=== PATIENT | female | born 1930 | race Caucasian/White ===

== ENCOUNTER 2017-11-08 06:03 | Inpatient (IN) ==
[2017-11-08 06:49] LABS: Appearance,Urine SL CLOUDY (Clear); Bilirubin,Urine Negative (Negative); Blood, Urine Negative (Negative); Color,Urine YELLOW (Yellow); Glucose,Urine (UA) Negative (Negative); Ketones,Urine Negative (Negative); Leukocyte Esterase,Urine Negative (Negative); Microscopic, Urine URINE MICROSCOPIC (MICROSCOPIC); Protein,Urine Negative (Negative); Urobilinogen,Urine 0.2 EU/dl (0.2)
[2017-11-08 06:57] LABS: Anion Gap 12.1 mEq/L (5-15); Potassium 4.1 mmoL/L (3.5-5.1)
[2017-11-08 07:00] LABS: Bacteria,Urine 3+ /lpf; INR 1.13 (0.9-1.1); Prothrombin Time 12.2 seconds (9.4-11.8); Yeast,Urine 1+ /lpf
[2017-11-08 07:05] LABS: Basophils # 0.1 K/mm3 (0-0.2); Basophils % 0.5 % (0.1-2.0); Eosinophils # 0.3 K/mm3 (0.0-0.4); Hematocrit 34.8 % (37.0-47.0); Lymphocytes # 1.4 K/mm3 (0.7-4.5); Lymphocytes % 14.4 K/mm3 (10-50); Mean Corpuscular HGB Conc 31.7 g/dL (31.8-35.4); Mean Corpuscular Hemoglobin 30.7 pg (27.0-31.2); Mean Corpuscular Volume 96.7 fl (81-99); Monocytes # 0.7 K/mm3 (0.1-1.0); Neutrophils # 7.5 K/mm3 (1.8-7.8); Neutrophils % 75.1 % (37.0-80.0); Platelet Count 291 K/mm3 (142-424); Red Blood Count 3.59 M/mm3 (4.20-5.40); Red Cell Distribution Width 13.9 % (11.5-17.5)
--- NOTE | 2017-11-08 10:57 | Progress Note ---
[facility] Anesthesia Checklist - Patient Identification Patient Identification: Arm Band - Structural Data Admitted From: Home Planned Operative Procedure/s: right guy Consent for Planned Operative Procedure(s) Verified: Yes Verified Documents: Surgical Consent, History and Physical - NPO Status Verified Time NPO: 00:00 - Additional verifications Anesthesia Reactions: No - Airway Assessment C-Spine Mobility Assessed: Yes (mp2) TMJ Mobility Assessed: Yes Dentition: Good Dentition - Neurological Assessment Level of Consciousness: Awake, Alert - Anesthesia Plan Anesthesia Risk discussed: Yes Anesthesia Plan: Verified ASA Class: III Anesthesia Type: General [facility] Anesthesia HX I have reviewed the patient's past medical history: Yes Medical History: Reports:: Anxiety, Atrial Fibrillation, Cancer (breast), Coronary Artery Disease, Internal Pacemaker, Valvular Heart Disease Denies:: Diabetes Mellitus Type 1, Diabetes Mellitus Type 2, MRSA, Seizures Other Medical History: Reports: Hypothyroidism Laterality Cases: Left: Mastectomy, Right: Total Hip Replacement Other Surgeries: Yes: Cholecystectomy, Colostomy, Pacemaker Amputation: No Fractures: Yes *Family Hx:: Heart Attack, Hyperlipidemia, Hypertension, Stroke
--- NOTE | 2017-11-08 10:59 | Progress Note ---
[facility] Anesthesia Record Part I Intake, IV Amount: 1,000 Estimated blood loss (mL): 200 Urine output (mL): 175 Blood Pressure: 134/69 SaO2: 96 Pulse Rate: 80 Respiratory Rate: 16 Temperature: 97.7 F Patient is:: Drowsy, Nasal O2, Stable Stable to PACU at:: 10:50
--- NOTE | 2017-11-08 10:59 | Progress Note ---
[facility] Anesthesia Record Part II Discharge Time: 11:20 Destination: 2nd floor PACU nurse assessment reviewed?: Yes Patient Condition:: Good Anesthesia Complications:: None
--- NOTE | 2017-11-08 13:25 | Consult Report ---
History of Present Illness Consult date: 11/08/17 Requesting physician: Nuno Lopez Consult reason: post-op evaluation Chief complaint: S/P Right hip replacement Additional Medical History:: 1. Coronary artery disease A. Cardiac cath, 2011, mild CAD B. Cardiac cath, 2014, 50-60% mid LAD lesion. Medical therapy. [facility]. 2. Mixed valvular heart disease including mild aortic stenosis with mild aortic insufficiency, moderate mitral regurgitation and moderate to severe tricuspid regurgitation with RVSP of 76 mmHg. 3. Permanent pacemaker in situ A. Chronic atrial fibrillation, on coagulation therapy with Coumadin 4. HLD, on statin therapy 5. HTN/HHD A. Echo, 11/2017, moderate LAE, normal LV size, LVEF 45% with distal septum and apical wall hypokinesis. Moderate GERARD and mild RVE. Thickened and calcified aortic valve with mild aortic stenosis, there is mild aortic insufficiency with mean gradient of 19 mm across the aortic valve. Moderate mitral and moderate to severe tricuspid regurgitation with RVSP of 76 mmHg. History of present illness: 87-year-old white female seen postop after right hip replacement. Patient has known mixed valvular heart disease and cardiology has been asked to follow. Patient is drowsy but arousable. She denies any chest pain at this time. She was recently seen in the office earlier this month and cleared for surgery. [facility] History Medical History: Reports:: Anxiety, Atrial Fibrillation, Cancer (breast), Coronary Artery Disease, Internal Pacemaker, Valvular Heart Disease Denies:: Diabetes Mellitus Type 1, Diabetes Mellitus Type 2, MRSA, Seizures Other Medical History: Reports: Hypothyroidism Laterality Cases: Left: Mastectomy, Right: Total Hip Replacement Other Surgeries: Yes: Cholecystectomy, Colostomy, Pacemaker Amputation: No Fractures: Yes - *Social History Educational Level: Completed High School Smoking Status: Never smoker Alcohol Intake: never Occupational Status: retired Housing: house Household Members: none - Psychiatric History Expresses thoughts of harming self/others: None Suicide Plan Description: No Plan Pschychiatric History:: Reports:: Anxiety *Family Hx:: Heart Attack, Hyperlipidemia, Hypertension, Stroke Meds Home Medications Medication Instructions Recorded Confirmed Type alprazolam 0.5 mg tablet 0.5 mg PO DAILY 07/14/17 11/08/17 History bisoprolol fumarate 5 mg tablet 2.5 mg PO BID 07/14/17 11/08/17 History celecoxib 200 mg capsule 200 mg PO QDAY 07/14/17 11/08/17 History cholecalciferol (vitamin D3) 1,000 1,000 unit PO DAILY 07/14/17 11/08/17 History unit capsule duloxetine 60 mg capsule,delayed 60 mg PO QDAY 07/14/17 11/08/17 History release furosemide 20 mg tablet 20 mg PO QODHS 07/14/17 11/08/17 History levothyroxine 50 mcg capsule 50 mcg PO DAILY 07/14/17 11/08/17 History midodrine 5 mg tablet 5 mg PO TID 07/14/17 11/08/17 History multivitamin-ferrous 1 tab PO QAM 07/14/17 11/08/17 History fumarate-folic acid 18 mg-400 mcg tablet oxycodone-acetaminophen 2.5 mg-325 1 tab PO Q6HP PRN 07/14/17 11/08/17 History mg tablet pantoprazole 40 mg tablet,delayed 40 mg PO QAM 07/14/17 11/08/17 History release potassium chloride ER 10 mEq 10 meq PO QODHS 07/14/17 11/08/17 History capsule,extended release warfarin 2 mg tablet 1 mg PO QDAY 07/14/17 11/08/17 History Digoxin 125 mcg PO DAILY 09/23/17 11/08/17 History diltiazem CD 180 mg 180 mg PO DAILY cap 11/02/17 11/08/17 History capsule,extended release 24 hr ranolazine ER 500 mg 500 mg PO DAILY tab 11/02/17 11/08/17 History tablet,extended release,12 hr levoFLOXacin [Levaquin 500mg 500 mg PO DAILY 11/08/17 11/08/17 History tab] Allergies Allergy/AdvReac Type Severity Reaction Status Date / Time amiodarone Allergy Mild "feel Verified 11/08/17 06:44 crazy" Review of Systems - *Cardiovascular Denies chest pain - *Respiratory Reports shortness of breath with activity - *Gastrointestinal Denies abdominal pain - *Musculoskeletal Reports joint pain Exam Vital signs and Labs for Last 24 Hours: Temp Pulse Resp BP Pulse Ox 98.0 F 70 20 115/53 94 L 11/08/17 12:08 11/08/17 12:08 11/08/17 12:08 11/08/17 12:08 11/08/17 12:08 Laboratory Results - last 24 hr 11/08/17 06:35: Urine Color Yellow, Urine Appearance Sl cloudy, Urine pH 6.0, Ur Specific [place] 1.020, Urine Protein Negative, Urine Glucose (UA) Negative, Urine Ketones Negative, Urine Blood Negative, Urine Nitrate Negative, Urine Bilirubin Negative, Urine Urobilinogen 0.2, Ur Leukocyte Esterase Negative, Urine WBC 10-20, Ur Squamous Epith Cells 10-20, Urine Bacteria 3+, Urine Yeast 1 + 11/08/17 06:35: WBC 10.0, RBC 3.59 L, Hgb 11.0 L, Hct 34.8 L, MCV 96.7, MCH 30.7 , MCHC 31.7 L, RDW 13.9, Plt Count 291, MPV 8.0, Neut % (Auto) 75.1, Lymph % ( Auto) 14.4, Giles % (Auto) 7.0, Eos % (Auto) 3.0, Baso % (Auto) 0.5, Neut # (Auto ) 7.5, Lymph # (Auto) 1.4, Giles # (Auto) 0.7, Eos # (Auto) 0.3, Baso # (Auto) 0.1 11/08/17 06:35: Sodium 138, Potassium 4.1, Chloride 101, Carbon Dioxide 29, Anion Gap 12.1, BUN 14, Creatinine 1.21 H, Estimated Creat Clear 24, Estimated GFR 42 L, Est GFR ( Amer) 51 L, Glucose 105 11/08/17 06:35: Blood Type A Positive, Antibody Screen Negative, Crossmatch (AHG ) See Detail 11/08/17 06:35: PT 12.2 H, INR 1.13 H I & O for Last 24 hours: Intake & Output 11/06/17 11/07/17 11/08/17 11/09/17 11:59 11:59 11:59 11:59 Intake Total 1000 / 1000 Balance 1000 / 1000 Weight 103 lb 104 lb 2 oz - Constitutional Comments: White female in bed in no acute distress. Patient is seen postoperatively and is still drowsy but arousable to verbal stimuli. - *Routine Neck Exam Present: carotid bruit - *Routine Respiratory Exam Present: CTA bilaterally - *Routine Cardiovascular Exam Present: RRR, murmur - *Routine Extremities Exam Absent: edema Assessment and Plan (1) Status post right hip replacement Current visit: Yes Status: Acute Category: Surgical Code(s): Z96.641 - Presence of right artificial hip joint (2) Aortic valve stenosis Current visit: Yes Status: Acute Category: Medical Code(s): I35.0 - Nonrheumatic aortic (valve) stenosis (3) CAD (coronary artery disease) Current visit: No Status: Chronic Qualifiers: Coronary Disease-Associated Artery/Lesion type: [place] artery [place] vs. transplanted heart: [place] heart Associated angina: without angina Qualified Code(s): I25.10 - Atherosclerotic heart disease of [place] coronary artery without angina pectoris Category: Medical Code(s): I25.10 - Atherosclerotic heart disease of [place] coronary artery without angina pectoris (4) Cardiac pacemaker in situ Current visit: No Status: Chronic Category: Medical Code(s): Z95.0 - Presence of cardiac pacemaker (5) Atrial fibrillation Current visit: No Status: Chronic Qualifiers: Atrial fibrillation type: permanent Qualified Code(s): I48.2 - Chronic atrial fibrillation Category: Medical Code(s): I48.91 - Unspecified atrial fibrillation (6) Cardiomyopathy Current visit: No Status: Chronic Category: Medical Code(s): I42.9 - Cardiomyopathy, unspecified (7) HLD (hyperlipidemia) Current visit: No Status: Chronic Qualifiers: Hyperlipidemia type: mixed hyperlipidemia Qualified Code(s): E78.2 - Mixed hyperlipidemia Category: Medical Code(s): E78.5 - Hyperlipidemia, unspecified (8) HTN (hypertension) Current visit: No Status: Chronic Qualifiers: Hypertension type: essential hypertension Qualified Code(s): I10 - Essential (primary) hypertension Category: Medical Code(s): I10 - Essential (primary) hypertension (9) Mitral valve regurgitation Current visit: No Status: Chronic Category: Medical Code(s): I34.0 - Nonrheumatic mitral (valve) insufficiency - Assessment and plan all Dx Assessment and Plan for all problems:: 1. Home medications of bisoprolol and Cardizem along with Lasix and Ranexa have been ordered. 2. Continue cautious IV fluid use 3. We will follow with you.
--- NOTE | 2017-11-08 13:40 | Pharmacy Consult Notes ---
[facility] Pharmacy VTE Monitoring - Patient Demographics Admission date: 11/08/17 Report Date: 11/08/17 Time: 13:40 Allergies/Adverse Reactions: Patient Allergies amiodarone Allergy (Mild, Verified 11/08/17 06:44) "feel crazy" Height: 1.55 m Weight: 47.23 kg Patient Problems: Current Active Problems (Last Reviewed 10/29/17 @ 12:56 by SHEA Bosch) Status post right hip replacement (Acute) Aortic valve stenosis (Acute) - VTE Risk Labs: VTE Related Lab Results Hgb 11.0 g/dL (12.2-16.2) L 11/08/17 06:35 Hct 34.8 % (37.0-47.0) L 11/08/17 06:35 Plt Count 291 K/mm3 (142-424) 11/08/17 06:35 PT 12.2 seconds (9.4-11.8) H 11/08/17 06:35 INR 1.13 (0.9-1.1) H 11/08/17 06:35 BUN 14 mg/dL (7-18) 11/08/17 06:35 Creatinine 1.21 mg/dL (0.55-1.02) H 11/08/17 06:35 Estimated Creat Clear 24 mL/min (0-300) 11/08/17 06:35 VTE Score: 4 VTE Risk Level: Low Risk - Prophylaxis VTE Prophylaxis Ordered?: Yes Types of VTE Prophylaxis: IPCS Knee High, Pharmacological Location of Applied Device: Bilateral Lower Extremeties Pharmacologic Type: Enoxaparin
--- NOTE | 2017-11-08 20:28 | Operative Note ---
Date of procedure: 11/08/17 Pre-op Diagnosis:: 1. Avascular necrosis, right femoral head 2. Status post cannulated hip screw fixation, right hip Post-op Diagnosis:: 1. Avascular necrosis, right femoral head 2. Status post cannulated hip screw fixation, right hip Procedure performed:: 1. Removal of hardware, right hip 2. Bipolar hemiarthroplasty, right hip Surgeon:: Nuno Lopez MD Metal Burnisher(s):: Dr. Crook NARCOTICS AGENT:: Toby Feedonna Anesthesia: GETA, regional Estimated blood loss (mL): 200 Clinical Note:: Patient is an 87-year-old female who sustained a valgus impacted intracapsular fracture neck of the RIGHT femur following a mechanical fall at home in May 2017. She was admitted to hospital and following appropriate evaluation she underwent a cannulated screw fixation right hip fracture by Dr. Crook. She subsequently developed avascular necrosis the femoral head with worsening hip pain. Evaluation including aspiration of the hip joint under fluoroscopy did not reveal any evidence of infection. Patient was due to have surgery last week but it was delayed due to urinary tract infection. Now she is on treatment for UTI and is brought in for removal of the cannulated screws followed by a total hip arthroplasty/bipolar hemiarthroplasty as appropriate at the time of surgery. The surgery is indicated to relieve pain and restore function. The surgery is clinically indicated and is the standard of care for this type of problem. I have previously seen her along with her family in the preoperative area last week when she was brought in for surgery that was eventually canceled because of UTI. At that time Dr. Crook has requested me to take over her further management and the family were happy with that. Operative findings:: There is significant collapse and destruction of the femoral head noted as noted on the preoperative imaging. No evidence of screw penetration noted into the acetabulum. There were loose bone/chondral fragments in the hip joint. Also there is granulation tissue in the fovea. The articular cartilage of the acetabulum is well-preserved without any significant degenerative changes. Marked synovitis was noted. Also there was synovitis at the screw insertion site. No evidence of shalini infection or pus was noted. Intraoperative tissue samples and culture swabs were taken for Gram stain and culture and sensitivity. We also sent the femoral head for histopathology. The proximal femur bone quality is reasonably good. Operative note:: On the day of the procedure the patient and family were met in the preoperative area, and a physical examination was performed. The operating side and site were marked and initialed by me. I reviewed the diagnosis, natural history and management options in detail including both the nonsurgical and surgical. Given the nature of the right hip condition, I have recommended surgery in the form of either a total hip arthroplasty or a bipolar hemiarthroplasty depending on the condition of the acetabular articular surface at the time of surgery. I discussed the procedure, risks and benefits, alternatives, potential complications and expected outcomes with the patient and family. The complications discussed include but are not limited to infection, injury to nerves and blood vessels, DVT and PE, femur fracture, limb length inequality, dislocation, implant failure, loosening, acetabular wear, osteolysis, periprosthetic femur fracture, heterotopic ossification, abductor weakness and a limp, incomplete relief of pain, incomplete return of function or motion, likely need for further surgery in future including revision, anesthetic/ medical complications including heart attack, stroke, transfusion reactions and even . We discussed how any of these events can be devastating. We have discussed nonsurgical alternatives as well. We also discussed the postoperative course including the rehab and physical therapy required. The consent form was reviewed and signed. The patient was brought to the operating room and a general anesthesia was administered by the athletic gear custodian. The patient was then transferred onto the operating table and positioned in the LEFT lateral decubitus position with the RIGHT hip facing upwards. All the bony prominences were well-padded. The RIGHT lower extremity was then prepped and draped in the usual sterile fashion. The entire operative team used isolation suits and room traffic was controlled. The surgical landmarks and incision was marked over the skin with a marking pen. Ioban sterile drape was used to cover the operative site and isolate the perineum completely from the operative field. Administration of 2 g of prophylactic IV Ancef was confirmed with the anesthetic team. A preprocedure timeout was performed as per hospital protocol. A posterior approach was used to the hip joint. An electrocautery was used for hemostasis. The skin incision was made centering over the posterior border of the greater trochanter extending posteriorly in a curvilinear fashion across the buttock. The previous surgical scar for insertion of the cannulated screws was noted to be too far anterior to be incorporated this incision. In any case that incision was very small and the risk of any vascular problems for the intervening skin is very minimal. The dissection was carried through subcutaneous tissue down to the fascia kamilla. The fascia kamilla and gluteus fascia were split and a Charnley retractor was placed. The trochanteric bursa was then removed with blunt dissection. The sciatic nerve was identified and kept out of the harm's way throughout the rest of the procedure. We then turned our attention to the removal of the cannulated screws. The screw heads were palpable over the lateral aspect of the proximal bladder. We split the vastus lateralis muscle over the screw heads and easily remove the screws with appropriate sober. We noticed a lot of synovitis over the screw heads but no evidence of any shalini infection noted. We took culture swabs and tissue samples from this area for microbiology. Following removal of the screws the area was thoroughly irrigated with pulse lavage. We then turned our attention to performing the arthroplasty. The hip joint was internally rotated and the fat over the external rotators was cleared with a sponge. The short external rotator muscles were identified, a couple of tag stitches were placed near their insertion, and they were divided close to the greater trochanter with electrocautery. This exposed the joint capsule which was opened with a T shaped incision and tag stitches were applied to both the leaves of the capsule. Upon opening the joint capsule, we noted the capsule to be very thickened and synovitic. The hip joint was then dislocated. The femoral cutting guide was used to demarcate the appropriate level of the neck cut and the neck was osteotomized with an oscillating saw. The femoral head was removed, noted to be very deformed with collapse of the articular surface. The head was sent for histopathology examination. Also there were multiple loose chondral/bone bone fragments in the acetabulum. No evidence of any shalini infection was noted. The debris was removed from the acetabulum and it was irrigated thoroughly with pulse lavage. A thorough examination of the stent was carried out at this stage and was noted the cartilage to be well preserved without any significant degenerative changes. There was some granulation tissue in the fovea which we removed with the electrocautery. No evidence of any screw penetration was noted into the acetabulum. Therefore, we decided to proceed with a bipolar hemiarthroplasty and not performed a full total hip arthroplasty. We then sized the acetabulum and it measured 50 mm. Our attention was then turned to the preparation of proximal femur where a cutting guide was used to francia the neck for the femoral neck cut. An oscillating saw was then used to finish the femoral cut. A box osteotome was then used to remove the bone from the proximal femur. A canal entry reamer was then used to open the femoral canal paying close attention to keep the reamer in a lateral position. Next we performed femoral broaching starting with a small broach, making efforts to lateralize the broach. The broaching was continued sequentially up to size 4 broach. We found this to be a very good fit without any rocking. We then used the calcar reamer to finish the femoral preparation. We then performed a trial reduction using the size 4 broach , +0 neck and 50 mm bipolar head. We noticed this to be somewhat loose the leg was noted to be short compared to the opposite side. Therefore we changed today place for neck and re-trialed. The hip was taken through range of motion and tested in adduction, internal and external rotation as well as with a shuck and posteriorly directed force on a flexed hip. It was noted that the hip was very stable with these trial components throughout the range of motion. We also noted that the limb lengths were equal with these components. Next, the trial components were removed and the femur and acetabulum were irrigated with pulse lavage and suctioned out. The size 4 Stuart accolade 132 degree femoral stem was introduced and seated to the appropriate level. This gave us a very good fit without any play whatsoever. We then irrigated and dried the Prater taper and then placed the definitive 50 mm bipolar femoral head assembly on the stem and tapped into place. The hip was then reduced and again taken through range of motion and noted to be stable. The limb length was also well corrected. The hip joint was then soaked with dilute Betadine solution for 3 minutes, then suctioned out and irrigated with normal saline pulse lavage. At this point I also injected the capsule and soft tissue with the local anesthetic cocktail ( 0.5 percent bupivacaine 200 mg +10 mg of morphine +600 g of epinephrine +750 mg of cefuroxime diluted in normal saline to make up a total volume of 120 mL). We confirmed good hemostasis and then proceeded to close the wound. The capsule was closed with interrupted #1 Vicryl sutures followed by reattachment of the external rotators to the greater trochanter with #1 Vicryl sutures. Next the fascia kamilla and the gluteus fascia were closed with #1 Vicryl sutures. The wound was again irrigated copiously with pulse lavage and suctioned dry. Next the subcutaneous tissue was closed with interrupted #2-0 Vicryl sutures. The skin was closed with 4-0 Monocryl subcuticular sutures, Dermabond and Steri- Strips. Sterile dressings were applied with Silverlon dressing. No drains were placed. The patient was then transferred from the operating table onto the bed. The leg lengths were again checked in supine position and noted to be equal. An abduction pillow was placed between the legs. The patient was then reversed from the anesthetic and transported to the postoperative recovery area in a stable condition. She tolerated the procedure well and there were no immediate complications. Swab, needle and instrument counts were correct according to the scrub team at the end of the procedure. Portable X-rays of the RIGHT hip AP and lateral views were obtained in the recovery area and noted to be satisfactory. Postoperatively, continue standard precautions for a posterior hip approach. To mobilize weightbearing as tolerated with the help of a walker by physical therapist and to commence standard physical therapy and precautions for a posterior hip approach. Implants: Stuart Accolade 132 degree neck angle V 40, hip stem- size 4 Stuart UHR universal head bipolar component- 50 mm outer diameter/28 mm inner diameter Stuart LFIT V40 femoral head, 28 mm outer diameter, +4 mm offset (Industry pharmaceutical sales representative: Antwon Clark from [employer]) Condition: stable Disposition: floor Specimens:: 1. Tissue samples and culture swabs from right hip for microbiology 2. Femoral head for histopathological examination Complications:: None
--- NOTE | 2017-11-08 20:30 | Progress Note ---
Internal Medicine - PN: Subj *Date: 11/08/17 *Time: 20:28 Interval history: Consulted for medical management after hip replacement today. Patient is currently resting comfortably. She is drinking liquids and preparing to eat some Jello. Exam Vital signs and Labs for Last 24 Hours: Temp Pulse Resp BP Pulse Ox 97.2 F L 76 18 112/58 93 L 11/08/17 19:45 11/08/17 19:45 11/08/17 19:45 11/08/17 19:45 11/08/17 19:45 Laboratory Results - last 24 hr 11/08/17 06:35: Urine Color Yellow, Urine Appearance Sl cloudy, Urine pH 6.0, Ur Specific [place] 1.020, Urine Protein Negative, Urine Glucose (UA) Negative, Urine Ketones Negative, Urine Blood Negative, Urine Nitrate Negative, Urine Bilirubin Negative, Urine Urobilinogen 0.2, Ur Leukocyte Esterase Negative, Urine WBC 10-20, Ur Squamous Epith Cells 10-20, Urine Bacteria 3+, Urine Yeast 1 + 11/08/17 06:35: WBC 10.0, RBC 3.59 L, Hgb 11.0 L, Hct 34.8 L, MCV 96.7, MCH 30.7 , MCHC 31.7 L, RDW 13.9, Plt Count 291, MPV 8.0, Neut % (Auto) 75.1, Lymph % ( Auto) 14.4, [place] % (Auto) 7.0, Eos % (Auto) 3.0, Baso % (Auto) 0.5, Neut # (Auto ) 7.5, Lymph # (Auto) 1.4, [place] # (Auto) 0.7, Eos # (Auto) 0.3, Baso # (Auto) 0.1 11/08/17 06:35: Sodium 138, Potassium 4.1, Chloride 101, Carbon Dioxide 29, Anion Gap 12.1, BUN 14, Creatinine 1.21 H, Estimated Creat Clear 24, Estimated GFR 42 L, Est GFR ( Amer) 51 L, Glucose 105 11/08/17 06:35: Blood Type A Positive, Antibody Screen Negative, Crossmatch (AHG ) See Detail 11/08/17 06:35: PT 12.2 H, INR 1.13 H 11/08/17 08:05: Urine Color Yellow, Urine Appearance Clear, Urine pH 5.5, Ur Specific [place] 1.025, Urine Protein Negative, Urine Glucose (UA) Negative, Urine Ketones Negative, Urine Blood Negative, Urine Nitrate Negative, Urine Bilirubin Negative, Urine Urobilinogen 0.2, Ur Leukocyte Esterase Negative Vital Signs Temp Pulse Pulse Resp BP BP Pulse Ox 11/08/17 19:45 97.2 F L 76 18 112/58 93 L 11/08/17 18:31 97.2 F L 74 16 97/47 93 L 11/08/17 17:30 97.7 F 72 18 102/54 92 L 11/08/17 16:30 97.3 F L 70 18 99/45 11/08/17 15:30 97.2 F L 75 16 94/45 95 11/08/17 14:30 97.6 F 63 16 94/47 93 L 11/08/17 14:00 97.2 F L 69 16 102/46 95 11/08/17 13:30 97.4 F L 71 16 100/47 93 L 11/08/17 13:00 97.6 F 69 16 104/46 94 L 11/08/17 12:30 97.2 F L 73 16 114/53 94 L 11/08/17 12:15 97.0 F L 71 16 118/54 96 11/08/17 12:08 98.0 F 70 20 115/53 94 L 11/08/17 12:00 97.3 F L 70 16 115/53 96 11/08/17 11:45 97.1 F L 72 16 114/61 94 L 11/08/17 11:40 99.3 F 66 24 122/64 98 11/08/17 11:30 99.3 F 71 20 126/63 97 11/08/17 11:20 97.7 F 71 19 131/58 96 11/08/17 11:10 97.7 F 70 19 127/62 97 11/08/17 11:00 97.7 F 83 16 125/50 96 11/08/17 10:59 97.7 F 80 16 134/69 11/08/17 10:50 97.7 F 80 16 134/69 97 11/08/17 06:56 97.4 F L 70 20 154/77 96 Intake and Output 11/08/17 11/08/17 11/09/17 11:59 19:59 03:59 Intake Total 1000 / 1000 200 / 200 Output Total 175 / 175 100 / 100 Balance 825 / 825 100 / 100 Intake: Intake, Oral Amount 200 / 200 Intake, Total IV Amount 1000 / 1000 Output: Output, Urine Amount 100 / 100 Output, Urine Amount (Catheter) 175 / 175 Bryant 175 / 175 Other: Weight 104 lb 2 oz Patient Weight 11/09/17 11:59 Weight 104 lb 2 oz I & O for Last 24 hours: Intake & Output 11/06/17 11/07/17 11/08/17 11/09/17 11:59 11:59 11:59 11:59 Intake Total 1000 / 1000 200 / 200 Output Total 175 / 175 100 / 100 Balance 825 / 825 100 / 100 Weight 103 lb 104 lb 2 oz - Constitutional no acute distress - *Routine HEENT Exam ENT: Present: mucous membranes moist Assessment and Plan (1) Status post right hip replacement Current visit: Yes Status: Acute Category: Surgical Code(s): Z96.641 - Presence of right artificial hip joint (2) Aortic valve stenosis Current visit: Yes Status: Acute Category: Medical Code(s): I35.0 - Nonrheumatic aortic (valve) stenosis (3) CAD (coronary artery disease) Current visit: No Status: Chronic Qualifiers: Coronary Disease-Associated Artery/Lesion type: [place] artery [place] vs. transplanted heart: [place] heart Associated angina: without angina Qualified Code(s): I25.10 - Atherosclerotic heart disease of [place] coronary artery without angina pectoris Category: Medical Code(s): I25.10 - Atherosclerotic heart disease of [place] coronary artery without angina pectoris (4) Cardiac pacemaker in situ Current visit: No Status: Chronic Category: Medical Code(s): Z95.0 - Presence of cardiac pacemaker (5) Atrial fibrillation Current visit: No Status: Chronic Qualifiers: Atrial fibrillation type: permanent Qualified Code(s): I48.2 - Chronic atrial fibrillation Category: Medical Code(s): I48.91 - Unspecified atrial fibrillation (6) Cardiomyopathy Current visit: No Status: Chronic Category: Medical Code(s): I42.9 - Cardiomyopathy, unspecified (7) HLD (hyperlipidemia) Current visit: No Status: Chronic Qualifiers: Hyperlipidemia type: mixed hyperlipidemia Qualified Code(s): E78.2 - Mixed hyperlipidemia Category: Medical Code(s): E78.5 - Hyperlipidemia, unspecified (8) HTN (hypertension) Current visit: No Status: Chronic Qualifiers: Hypertension type: essential hypertension Qualified Code(s): I10 - Essential (primary) hypertension Category: Medical Code(s): I10 - Essential (primary) hypertension (9) Mitral valve regurgitation Current visit: No Status: Chronic Category: Medical Code(s): I34.0 - Nonrheumatic mitral (valve) insufficiency - Assessment and plan all Dx Assessment and Plan for all problems:: Cardiology note reviewed, continue current care.
[2017-11-09 06:56] LABS: Basophils % 0.2 % (0.1-2.0); Eosinophils % 0.2 % (0.1-12.0); Lymphocytes # 0.9 K/mm3 (0.7-4.5); Lymphocytes % 4.3 K/mm3 (10-50); Mean Corpuscular HGB Conc 31.8 g/dL (31.8-35.4); Mean Corpuscular Volume 97.6 fl (81-99); Mean Platelet Volume 8.6 fl (7.4-10.4); Monocytes # 1.4 K/mm3 (0.1-1.0); Monocytes % 6.5 % (1.7-9.3); Neutrophils # 18.7 K/mm3 (1.8-7.8); Neutrophils % 88.9 % (37.0-80.0); Platelet Count 281 K/mm3 (142-424); Red Blood Count 2.71 M/mm3 (4.20-5.40); Red Cell Distribution Width 13.8 % (11.5-17.5)
[2017-11-09 07:01] LABS: Anion Gap 11.3 mEq/L (5-15); Potassium 4.3 mmoL/L (3.5-5.1)
[2017-11-09 07:14] LABS: Hematocrit 26.5 % (37.0-47.0); Hemoglobin 8.4 g/dL (12.2-16.2); White Blood Count 20.6 K/mm3 (4.8-10.8)
[2017-11-09 08:08] LABS: Lymphocytes % 8 % (10-50); Neutrophils % 92 % (42-76); Total Cells Counted 100
[2017-11-09 08:09] LABS: Hypochromasia 1+; Stomatocytes 2+
--- NOTE | 2017-11-09 09:10 | Progress Note ---
Internal Medicine - PN: Subj *Date: 11/09/17 *Time: 09:07 Interval history: Patient had some pain last night, has been up this morning already with assistance and is sitting in a chair. Exam Vital signs and Labs for Last 24 Hours: Temp Pulse Resp BP Pulse Ox 97.4 F L 99 H 18 103/49 93 L 11/09/17 07:33 11/09/17 08:55 11/09/17 07:33 11/09/17 07:33 11/09/17 08:40 Laboratory Results - last 24 hr 11/08/17 08:05: Urine Color Yellow, Urine Appearance Clear, Urine pH 5.5, Ur Specific [place] 1.025, Urine Protein Negative, Urine Glucose (UA) Negative, Urine Ketones Negative, Urine Blood Negative, Urine Nitrate Negative, Urine Bilirubin Negative, Urine Urobilinogen 0.2, Ur Leukocyte Esterase Negative, Urine RBC None, Urine WBC 3-5, Ur Squamous Epith Cells 5-10, Urine Bacteria Trace, Urine Yeast 4+ 11/09/17 06:35: WBC 20.6 H* D, RBC 2.71 L, Hgb 8.4 L D, Hct 26.5 L, MCV 97.6, MCH 31.0, MCHC 31.8, RDW 13.8, Plt Count 281, MPV 8.6, Neut % (Auto) 88.9 H, Lymph % (Auto) 4.3 L, [place] % (Auto) 6.5, Eos % (Auto) 0.2, Baso % (Auto) 0.2, Neut # (Auto) 18.7 H, Lymph # (Auto) 0.9, [place] # (Auto) 1.4 H, Eos # (Auto) 0.0 , Baso # (Auto) 0.0, Total Counted 100, Neutrophils % (Manual) 92 H, Lymphocytes % (Manual) 8 L, Platelet Estimate Normal, Hypochromasia 1+, Poikilocytosis 2+, Stomatocytes 2+ 11/09/17 06:35: Sodium 136, Potassium 4.3, Chloride 102, Carbon Dioxide 27, Anion Gap 11.3, BUN 15, Creatinine 1.17 H, Estimated Creat Clear 25, Estimated GFR 44 L, Est GFR ( Amer) 53 L, Glucose 122 H Vital Signs Temp Pulse Pulse Resp BP BP Pulse Ox 11/09/17 08:55 99 H 11/09/17 08:40 93 L 11/09/17 07:33 97.4 F L 99 H 18 103/49 95 11/09/17 04:00 100.4 F H 109 H 20 111/53 94 L 11/08/17 20:00 93 L 11/08/17 19:45 97.2 F L 76 18 112/58 93 L 11/08/17 18:31 97.2 F L 74 16 97/47 93 L 11/08/17 17:30 97.7 F 72 18 102/54 92 L 11/08/17 16:30 97.3 F L 70 18 99/45 11/08/17 15:30 97.2 F L 75 16 94/45 95 11/08/17 14:30 97.6 F 63 16 94/47 93 L 11/08/17 14:00 97.2 F L 69 16 102/46 95 11/08/17 13:30 97.4 F L 71 16 100/47 93 L 11/08/17 13:00 97.6 F 69 16 104/46 94 L 11/08/17 12:30 97.2 F L 73 16 114/53 94 L 11/08/17 12:15 97.0 F L 71 16 118/54 96 11/08/17 12:08 98.0 F 70 20 115/53 94 L 11/08/17 12:00 97.3 F L 70 16 115/53 96 11/08/17 11:45 97.1 F L 72 16 114/61 94 L 11/08/17 11:40 99.3 F 66 24 122/64 98 11/08/17 11:30 99.3 F 71 20 126/63 97 11/08/17 11:20 97.7 F 71 19 131/58 96 11/08/17 11:10 97.7 F 70 19 127/62 97 11/08/17 11:00 97.7 F 83 16 125/50 96 11/08/17 10:59 97.7 F 80 16 134/69 11/08/17 10:50 97.7 F 80 16 134/69 97 Intake and Output 11/08/17 11/09/17 11/09/17 19:59 03:59 11:59 Intake Total 200 / 200 120 / 120 240 / 240 Output Total 100 / 100 100 / 100 Balance 100 / 100 20 / 20 240 / 240 Intake: Intake, Oral Amount 200 / 200 120 / 120 240 / 240 Output: Output, Urine Amount 100 / 100 Output, Urine Amount (Catheter) 100 / 100 Bryant 100 / 100 Other: Weight 104 lb 2 oz Patient Weight 11/09/17 11:59 Weight 104 lb 2 oz I & O for Last 24 hours: Intake & Output 11/06/17 11/07/17 11/08/17 11/09/17 11:59 11:59 11:59 11:59 Intake Total 1000 / 1000 560 / 560 Output Total 175 / 175 200 / 200 Balance 825 / 825 360 / 360 Weight 103 lb 104 lb 2 oz Microbiology Reports for the Last 24 Hours: Microbiology 11/08/17 06:35 Urine,Clean Catch Urine Culture - Final Multiple organisms, suggests contamination. - Constitutional no acute distress - *Routine HEENT Exam ENT: Present: mucous membranes moist - *Routine Respiratory Exam Present: CTA bilaterally - *Routine Cardiovascular Exam Present: RRR - *Routine Extremities Exam Absent: cyanosis, clubbing, edema Assessment and Plan (1) Status post right hip replacement Current visit: Yes Status: Acute Category: Surgical Code(s): Z96.641 - Presence of right artificial hip joint (2) Aortic valve stenosis Current visit: Yes Status: Acute Category: Medical Code(s): I35.0 - Nonrheumatic aortic (valve) stenosis (3) CAD (coronary artery disease) Current visit: No Status: Chronic Qualifiers: Coronary Disease-Associated Artery/Lesion type: [place] artery [place] vs. transplanted heart: [place] heart Associated angina: without angina Qualified Code(s): I25.10 - Atherosclerotic heart disease of [place] coronary artery without angina pectoris Category: Medical Code(s): I25.10 - Atherosclerotic heart disease of [place] coronary artery without angina pectoris (4) Cardiac pacemaker in situ Current visit: No Status: Chronic Category: Medical Code(s): Z95.0 - Presence of cardiac pacemaker (5) Atrial fibrillation Current visit: No Status: Chronic Qualifiers: Atrial fibrillation type: permanent Qualified Code(s): I48.2 - Chronic atrial fibrillation Category: Medical Code(s): I48.91 - Unspecified atrial fibrillation (6) Cardiomyopathy Current visit: No Status: Chronic Category: Medical Code(s): I42.9 - Cardiomyopathy, unspecified (7) HLD (hyperlipidemia) Current visit: No Status: Chronic Qualifiers: Hyperlipidemia type: mixed hyperlipidemia Qualified Code(s): E78.2 - Mixed hyperlipidemia Category: Medical Code(s): E78.5 - Hyperlipidemia, unspecified (8) HTN (hypertension) Current visit: No Status: Chronic Qualifiers: Hypertension type: essential hypertension Qualified Code(s): I10 - Essential (primary) hypertension Category: Medical Code(s): I10 - Essential (primary) hypertension (9) Mitral valve regurgitation Current visit: No Status: Chronic Category: Medical Code(s): I34.0 - Nonrheumatic mitral (valve) insufficiency (10) Leukocytosis Current visit: Yes Status: Acute Category: Medical Code(s): D72.829 - Elevated white blood cell count, unspecified (11) Anemia Current visit: No Status: Acute Category: Medical Code(s): D64.9 - Anemia , unspecified - Assessment and plan all Dx Assessment and Plan for all problems:: Plan to give 1 unit of PRBC today and recheck labs tomorrow.
--- NOTE | 2017-11-09 09:58 | Progress Note ---
Subjective Date: 11/09/17 Time: 09:56 Principal diagnosis: post op hip replacement, day 1 Interval history: 87-year-old white female in bedside chair in no acute distress. Some shivering noted improved with blankets. Denies chest pain or shortness of breath. Exam Vital signs and Labs for Last 24 Hours: Temp Pulse Resp BP Pulse Ox 97.4 F L 99 H 18 103/49 93 L 11/09/17 07:33 11/09/17 08:55 11/09/17 07:33 11/09/17 07:33 11/09/17 08:40 Laboratory Results - last 24 hr 11/08/17 06:35: Crossmatch (AHG) See Detail 11/08/17 08:05: Urine Color Yellow, Urine Appearance Clear, Urine pH 5.5, Ur Specific [place] 1.025, Urine Protein Negative, Urine Glucose (UA) Negative, Urine Ketones Negative, Urine Blood Negative, Urine Nitrate Negative, Urine Bilirubin Negative, Urine Urobilinogen 0.2, Ur Leukocyte Esterase Negative, Urine RBC None, Urine WBC 3-5, Ur Squamous Epith Cells 5-10, Urine Bacteria Trace, Urine Yeast 4+ 11/09/17 06:35: WBC 20.6 H* D, RBC 2.71 L, Hgb 8.4 L D, Hct 26.5 L, MCV 97.6, MCH 31.0, MCHC 31.8, RDW 13.8, Plt Count 281, MPV 8.6, Neut % (Auto) 88.9 H, Lymph % (Auto) 4.3 L, [place] % (Auto) 6.5, Eos % (Auto) 0.2, Baso % (Auto) 0.2, Neut # (Auto) 18.7 H, Lymph # (Auto) 0.9, [place] # (Auto) 1.4 H, Eos # (Auto) 0.0 , Baso # (Auto) 0.0, Total Counted 100, Neutrophils % (Manual) 92 H, Lymphocytes % (Manual) 8 L, Platelet Estimate Normal, Hypochromasia 1+, Poikilocytosis 2+, Stomatocytes 2+ 11/09/17 06:35: Sodium 136, Potassium 4.3, Chloride 102, Carbon Dioxide 27, Anion Gap 11.3, BUN 15, Creatinine 1.17 H, Estimated Creat Clear 25, Estimated GFR 44 L, Est GFR ( Amer) 53 L, Glucose 122 H I & O for Last 24 hours: Intake & Output 11/06/17 11/07/17 11/08/17 11/09/17 11:59 11:59 11:59 11:59 Intake Total 1000 / 1000 560 / 560 Output Total 175 / 175 200 / 200 Balance 825 / 825 360 / 360 Weight 103 lb 104 lb 2 oz Microbiology Reports for the Last 24 Hours: Microbiology 11/08/17 06:35 Urine,Clean Catch Urine Culture - Final Multiple organisms, suggests contamination. - *Routine Respiratory Exam Present: CTA bilaterally - *Routine Cardiovascular Exam Present: RRR, murmur Progress Note: A&P (1) Status post right hip replacement Status: Acute Current Visit: Yes (2) Aortic valve stenosis Status: Acute Current Visit: Yes (3) CAD (coronary artery disease) Status: Chronic Current Visit: No (4) Cardiac pacemaker in situ Status: Chronic Current Visit: No (5) Atrial fibrillation Status: Chronic Current Visit: No (6) Cardiomyopathy Status: Chronic Current Visit: No (7) HLD (hyperlipidemia) Status: Chronic Current Visit: No (8) HTN (hypertension) Status: Chronic Current Visit: No (9) Mitral valve regurgitation Status: Chronic Current Visit: No (10) Leukocytosis Status: Acute Current Visit: Yes (11) Anemia Status: Acute Current Visit: No Assessment and Plan for All Diagnoses:: Cardiac status stable at this time. Continue current medical therapy. Patient did receive a unit of blood today. Would recommend IV Lasix 1 afterward to help prevent fluid overload.
--- NOTE | 2017-11-09 16:08 | Progress Note ---
Subjective Date: 11/09/17 Time: 15:45 Principal diagnosis: post op bipolar hemiarthroplasty, right hip, day 1 Interval history: Patient is status post removal of cannulated screws and uncemented bipolar hemiarthroplasty right hip post op day #1. Patient is lying down in bed. Says she is doing well and reports no problems. Patient has some pain in her right thigh/knee and says it's well-controlled with medication. No history of any nausea or vomiting. No history of any cough, chest pain, shortness of breath or palpitations. Patient says she is eating and drinking well. No history of any distal tingling or numbness. PN: Obj Ex Vital signs: Temp Pulse Resp BP Pulse Ox 98.0 F 70 18 90/37 97 11/09/17 15:33 11/09/17 15:33 11/09/17 15:33 11/09/17 15:33 11/09/17 15:33 Narrative: Laboratory Results - last 24 hr 11/08/17 06:35: Blood Type A Positive, Antibody Screen Negative, Crossmatch (AHG ) See Detail 11/08/17 08:05: Urine Color Yellow, Urine Appearance Clear, Urine pH 5.5, Ur Specific [place] 1.025, Urine Protein Negative, Urine Glucose (UA) Negative, Urine Ketones Negative, Urine Blood Negative, Urine Nitrate Negative, Urine Bilirubin Negative, Urine Urobilinogen 0.2, Ur Leukocyte Esterase Negative, Urine RBC None, Urine WBC 3-5, Ur Squamous Epith Cells 5-10, Urine Bacteria Trace, Urine Yeast 4+ 11/09/17 06:35: WBC 20.6 H* D, RBC 2.71 L, Hgb 8.4 L D, Hct 26.5 L, MCV 97.6, MCH 31.0, MCHC 31.8, RDW 13.8, Plt Count 281, MPV 8.6, Neut % (Auto) 88.9 H, Lymph % (Auto) 4.3 L, [place] % (Auto) 6.5, Eos % (Auto) 0.2, Baso % (Auto) 0.2, Neut # (Auto) 18.7 H, Lymph # (Auto) 0.9, [place] # (Auto) 1.4 H, Eos # (Auto) 0.0 , Baso # (Auto) 0.0, Total Counted 100, Neutrophils % (Manual) 92 H, Lymphocytes % (Manual) 8 L, Platelet Estimate Normal, Hypochromasia 1+, Poikilocytosis 2+, Stomatocytes 2+ 11/09/17 06:35: Sodium 136, Potassium 4.3, Chloride 102, Carbon Dioxide 27, Anion Gap 11.3, BUN 15, Creatinine 1.17 H, Estimated Creat Clear 25, Estimated GFR 44 L, Est GFR ( Amer) 53 L, Glucose 122 H Intake & Output 11/07/17 11/08/17 11/09/17 11/10/17 11:59 11:59 11:59 11:59 Intake Total 1000 / 1000 560 / 560 360 / 360 Output Total 175 / 175 200 / 200 250 / 250 Balance 825 / 825 360 / 360 110 / 110 Weight 104 lb 2 oz Exam General appearance: alert, active, awake, no acute distress ENT: Moist mucous membranes Cardiovascular: regular rate & rhythm, normal peripheral pulses, Respiratory: clear to auscultation, normal breath sounds ABD: normal exam; soft and non tender Genitourinary: Catheter in situ. 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 Thigh and calf are soft and nontender. On examination of the right hip the dressings are clean, dry and intact. No evidence of any infection or other complications noted. Distal pulses are 1+. Distal sensation is intact to light touch throughout. No motor deficits noted distally. - Urinary Catheter Management Bryant Cath placed during this visit: yes Urethral indwelling: Yes Reason for continuing: Surgical procedure Insertion date: 11/08/17 Insertion time: 08:05 Progress Note: A&P (1) Status post right hip replacement Status: Acute Current Visit: Yes (2) Aortic valve stenosis Status: Acute Current Visit: Yes (3) CAD (coronary artery disease) Status: Chronic Current Visit: No (4) Cardiac pacemaker in situ Status: Chronic Current Visit: No (5) Atrial fibrillation Status: Chronic Current Visit: No (6) Cardiomyopathy Status: Chronic Current Visit: No (7) HLD (hyperlipidemia) Status: Chronic Current Visit: No (8) HTN (hypertension) Status: Chronic Current Visit: No (9) Mitral valve regurgitation Status: Chronic Current Visit: No (10) Leukocytosis Status: Acute Current Visit: Yes (11) Anemia Status: Acute Current Visit: No Assessment and Plan for All Diagnoses:: Post op patient plan I reviewed the clinical and operative findings and procedure performed with the patient and family. I have told him that we have performed a bipolar hemiarthroplasty as the acetabular surface was well-preserved and we felt total hip arthroplasty is not needed. Her white cell count has gone up after surgery but there is no evidence of any infection. The intraoperative microbiology samples showed no bacteria on Gram stain. She also received 1 unit of PRBC today. We would observe repeat labs tomorrow. Patient is doing well and reports no problems. Patient started physical therapy/mobilization with PT weightbearing as tolerated on the right side with the walker and to continue the same. Continue DVT prophylaxis. Continue abduction pillow when in bed and continue standard precautions for the posterior approach hip replacement. Case management consult regarding discharge planning. Medical management as per Dr. Stark. Patient was also seen by cardiology as recommended by the plating department helper after surgery.
[2017-11-10 07:18] LABS: Basophils % 0.2 % (0.1-2.0); Eosinophils # 0.1 K/mm3 (0.0-0.4); Eosinophils % 0.3 % (0.1-12.0); Hematocrit 30.5 % (37.0-47.0); Hemoglobin 9.5 g/dL (12.2-16.2); Lymphocytes # 1.5 K/mm3 (0.7-4.5); Lymphocytes % 7.5 K/mm3 (10-50); Mean Corpuscular HGB Conc 31.1 g/dL (31.8-35.4); Mean Corpuscular Hemoglobin 30.6 pg (27.0-31.2); Mean Corpuscular Volume 98.3 fl (81-99); Mean Platelet Volume 9.1 fl (7.4-10.4); Monocytes # 1.3 K/mm3 (0.1-1.0); Monocytes % 6.4 % (1.7-9.3); Neutrophils # 17.5 K/mm3 (1.8-7.8); Neutrophils % 85.7 % (37.0-80.0); Platelet Count 250 K/mm3 (142-424); Red Blood Count 3.11 M/mm3 (4.20-5.40); Red Cell Distribution Width 13.7 % (11.5-17.5); White Blood Count 20.4 K/mm3 (4.8-10.8)
[2017-11-10 07:24] LABS: Anion Gap 12.8 mEq/L (5-15); INR 1.14 (0.9-1.1); Potassium 3.8 mmoL/L (3.5-5.1); Prothrombin Time 12.3 seconds (9.4-11.8)
--- NOTE | 2017-11-10 08:52 | Progress Note ---
Internal Medicine - PN: Subj *Date: 11/10/17 *Time: 08:50 Interval history: Patient has some abdominal pain and distension today. Exam Vital signs and Labs for Last 24 Hours: Temp Pulse Resp BP Pulse Ox 97.7 F 88 18 103/41 96 11/10/17 07:31 11/10/17 08:25 11/10/17 07:31 11/10/17 07:31 11/10/17 07:31 Laboratory Results - last 24 hr 11/08/17 06:35: Blood Type A Positive, Antibody Screen Negative, Crossmatch (AHG ) See Detail 11/10/17 07:00: WBC 20.4 H*, RBC 3.11 L, Hgb 9.5 L, Hct 30.5 L, MCV 98.3, MCH 30.6, MCHC 31.1 L, RDW 13.7, Plt Count 250, MPV 9.1, Neut % (Auto) 85.7 H, Lymph % (Auto) 7.5 L, [place] % (Auto) 6.4, Eos % (Auto) 0.3, Baso % (Auto) 0.2, Neut # (Auto) 17.5 H, Lymph # (Auto) 1.5, [place] # (Auto) 1.3 H, Eos # (Auto) 0.1 , Baso # (Auto) 0.0 11/10/17 07:00: Sodium 136, Potassium 3.8, Chloride 100, Carbon Dioxide 27, Anion Gap 12.8, BUN 23 H D, Creatinine 1.67 H D, Estimated Creat Clear 18, Estimated GFR 29 L, Est GFR ( Amer) 35 L D, Glucose 122 H 11/10/17 07:00: PT 12.3 H, INR 1.14 H Vital Signs Temp Pulse Pulse Pulse Resp BP BP 11/10/17 08:25 88 11/10/17 07:31 97.7 F 72 18 103/41 11/10/17 04:00 97.2 F L 72 16 95/40 11/09/17 21:05 11/09/17 19:34 97.7 F 70 16 90/58 11/09/17 19:17 11/09/17 15:33 98.0 F 70 18 90/37 11/09/17 13:35 71 16 84/82 11/09/17 12:35 98.3 F 70 16 91/42 11/09/17 12:00 98.7 F 71 18 111/56 11/09/17 11:45 98.6 F 76 16 96/50 11/09/17 11:30 98.1 F 74 14 94/50 11/09/17 11:15 98.5 F 76 16 85/46 11/09/17 11:10 98.7 F 86 14 91/43 11/09/17 11:05 98.5 F 91 H 16 88/40 11/09/17 11:00 98.5 F 81 16 87/44 11/09/17 10:40 98.7 F 78 14 81/46 11/09/17 09:14 99 H 18 11/09/17 08:55 99 H Pulse Ox 11/10/17 08:25 11/10/17 07:31 96 11/10/17 04:00 98 11/09/17 21:05 100 11/09/17 19:34 100 11/09/17 19:17 94 L 11/09/17 15:33 97 11/09/17 13:35 95 11/09/17 12:35 96 11/09/17 12:00 96 11/09/17 11:45 95 11/09/17 11:30 95 11/09/17 11:15 94 L 11/09/17 11:10 95 11/09/17 11:05 93 L 11/09/17 11:00 95 11/09/17 10:40 91 L 11/09/17 09:14 95 11/09/17 08:55 Intake and Output 11/09/17 11/10/17 11/10/17 19:59 03:59 11:59 Intake Total 1113 / 1113 959 / 959 Output Total 250 / 250 1000 / 1000 Balance 863 / 863 -41 / -41 Intake: Intake, Oral Amount 480 / 480 360 / 360 Intake, Total IV Amount 633 / 633 599 / 599 0.9 % Sodium Chloride 1,000 ml 633 / 633 599 / 599 @ 50 mls/hr IV .Q20H [facility] Rx#: [id number] Output: Output, Urine Amount 500 / 500 Output, Urine Amount (Catheter) 250 / 250 500 / 500 Grant 250 / 250 500 / 500 Other: Number of Voids 1 Number of Bowel Movements 0 I & O for Last 24 hours: Intake & Output 11/07/17 11/08/17 11/09/17 11/10/17 11:59 11:59 11:59 11:59 Intake Total 1000 / 1000 560 / 560 2071 / 2071 Output Total 175 / 175 200 / 200 1250 / 1250 Balance 825 / 825 360 / 360 822 / 822 Weight 104 lb 2 oz Microbiology Reports for the Last 24 Hours: Microbiology 11/08/17 08:05 Urine,Catheterized Urine Culture - Preliminary 11/08/17 08:37 Hip,Right Gram Stain - Final 11/08/17 08:37 Hip,Right Surgical Biopsy Culture - Preliminary NO GROWTH AFTER 24 HOURS 11/08/17 06:35 Urine,Clean Catch Urine Culture - Final Multiple organisms, suggests contamination. - Constitutional no acute distress - *Routine HEENT Exam ENT: Present: mucous membranes moist - *Routine Respiratory Exam Present: CTA bilaterally - *Routine Cardiovascular Exam Present: RRR - *Routine Abdominal Exam Present: soft, normoactive bowel sounds, tenderness (diffuse), distended - *Routine Extremities Exam Absent: edema Assessment and Plan (1) Status post right hip replacement Current visit: Yes Status: Acute Category: Surgical Code(s): Z96.641 - Presence of right artificial hip joint (2) Aortic valve stenosis Current visit: Yes Status: Acute Category: Medical Code(s): I35.0 - Nonrheumatic aortic (valve) stenosis (3) CAD (coronary artery disease) Current visit: No Status: Chronic Qualifiers: Coronary Disease-Associated Artery/Lesion type: [place] artery [place] vs. transplanted heart: [place] heart Associated angina: without angina Qualified Code(s): I25.10 - Atherosclerotic heart disease of [place] coronary artery without angina pectoris Category: Medical Code(s): I25.10 - Atherosclerotic heart disease of [place] coronary artery without angina pectoris (4) Cardiac pacemaker in situ Current visit: No Status: Chronic Category: Medical Code(s): Z95.0 - Presence of cardiac pacemaker (5) Atrial fibrillation Current visit: No Status: Chronic Qualifiers: Atrial fibrillation type: permanent Qualified Code(s): I48.2 - Chronic atrial fibrillation Category: Medical Code(s): I48.91 - Unspecified atrial fibrillation (6) Cardiomyopathy Current visit: No Status: Chronic Category: Medical Code(s): I42.9 - Cardiomyopathy, unspecified (7) HLD (hyperlipidemia) Current visit: No Status: Chronic Qualifiers: Hyperlipidemia type: mixed hyperlipidemia Qualified Code(s): E78.2 - Mixed hyperlipidemia Category: Medical Code(s): E78.5 - Hyperlipidemia, unspecified (8) HTN (hypertension) Current visit: No Status: Chronic Qualifiers: Hypertension type: essential hypertension Qualified Code(s): I10 - Essential (primary) hypertension Category: Medical Code(s): I10 - Essential (primary) hypertension (9) Mitral valve regurgitation Current visit: No Status: Chronic Category: Medical Code(s): I34.0 - Nonrheumatic mitral (valve) insufficiency (10) Leukocytosis Current visit: Yes Status: Acute Category: Medical Code(s): D72.829 - Elevated white blood cell count, unspecified (11) Anemia Current visit: No Status: Acute Category: Medical Code(s): D64.9 - Anemia , unspecified (12) Abdominal pain Current visit: Yes Status: Acute Category: Medical Code(s): R10.9 - Unspecified abdominal pain - Assessment and plan all Dx Assessment and Plan for all problems:: Plan to check abdominal and chest xrays today, grant to be removed today.
--- NOTE | 2017-11-10 09:30 | Progress Note ---
Subjective Date: 11/10/17 Time: 08:45 Principal diagnosis: post op bipolar hemiarthroplasty, right hip Interval history: Patient is status post bipolar hemiarthroplasty RIGHT hip, post op day #2. Patient is sitting out in the chair. Says she is having more pain in her right hip/thigh today. She is also reporting abdominal discomfort and distention. She says she has no nausea or vomiting and has opened her bowels earlier today. She says her pain is well-controlled with medication. No history of any cough , chest pain, shortness of breath or palpitations. No history of any distal tingling or numbness. PN: Obj Ex Vital signs: Temp Pulse Resp BP Pulse Ox 97.7 F 88 18 103/41 96 11/10/17 07:31 11/10/17 08:25 11/10/17 07:31 11/10/17 07:31 11/10/17 07:31 Narrative: Laboratory Results - last 24 hr 11/08/17 06:35: Blood Type A Positive, Antibody Screen Negative, Crossmatch (AHG ) See Detail 11/10/17 07:00: WBC 20.4 H*, RBC 3.11 L, Hgb 9.5 L, Hct 30.5 L, MCV 98.3, MCH 30.6, MCHC 31.1 L, RDW 13.7, Plt Count 250, MPV 9.1, Neut % (Auto) 85.7 H, Lymph % (Auto) 7.5 L, [place] % (Auto) 6.4, Eos % (Auto) 0.3, Baso % (Auto) 0.2, Neut # (Auto) 17.5 H, Lymph # (Auto) 1.5, [place] # (Auto) 1.3 H, Eos # (Auto) 0.1 , Baso # (Auto) 0.0 11/10/17 07:00: Sodium 136, Potassium 3.8, Chloride 100, Carbon Dioxide 27, Anion Gap 12.8, BUN 23 H D, Creatinine 1.67 H D, Estimated Creat Clear 18, Estimated GFR 29 L, Est GFR ( Amer) 35 L D, Glucose 122 H 11/10/17 07:00: PT 12.3 H, INR 1.14 H Intake & Output 11/07/17 11/08/17 11/09/17 11/10/17 11:59 11:59 11:59 11:59 Intake Total 1000 / 1000 560 / 560 2071 / 2071 Output Total 175 / 175 200 / 200 1250 / 1250 Balance 825 / 825 360 / 360 822 / 822 Weight 104 lb 2 oz Exam General appearance: alert, active, awake, no acute distress ENT: Mucous membranes moist Cardiovascular: regular rate & rhythm, normal peripheral pulses, Respiratory: clear to auscultation, normal breath sounds ABD: Diffuse distention and tenderness noted Genitourinary: Catheter in situ. normal voiding & quantity, no dysuria Neuro: alert, escrow manager II-XII nml as tested, no deficit, oriented x 3 Psych: normal mood and affect On examination of the lower extremities the limb lengths are equal. Thigh and calf are soft and nontender. On examination of the right hip, the dressings are clean, dry and intact. No evidence of any infection or other complications noted. Distal pulses are 2+. Distal sensation is intact to light touch throughout. No motor deficits noted distally. - Urinary Catheter Management Bryant Cath placed during this visit: yes Urethral indwelling: Yes Reason for continuing: Surgical procedure Insertion date: 11/08/17 Insertion time: 08:05 Progress Note: A&P (1) Status post right hip replacement Status: Acute Current Visit: Yes (2) Aortic valve stenosis Status: Acute Current Visit: Yes (3) CAD (coronary artery disease) Status: Chronic Current Visit: No (4) Cardiac pacemaker in situ Status: Chronic Current Visit: No (5) Atrial fibrillation Status: Chronic Current Visit: No (6) Cardiomyopathy Status: Chronic Current Visit: No (7) HLD (hyperlipidemia) Status: Chronic Current Visit: No (8) HTN (hypertension) Status: Chronic Current Visit: No (9) Mitral valve regurgitation Status: Chronic Current Visit: No (10) Leukocytosis Status: Acute Current Visit: Yes (11) Anemia Status: Acute Current Visit: No (12) Abdominal pain Status: Acute Current Visit: Yes Assessment and Plan for All Diagnoses:: Post op patient plan I reviewed the clinical findings and progress with the patient and family. Patient is doing well with this to her right hip but still continues to have elevated white cell count and has developed abdominal distention and discomfort today. I have discussed the Dr. Stark. He has ordered a chest x-ray and an abdominal x-ray as part of further evaluation. Postoperative ileus and intestinal obstruction are diagnostic considerations. Patient is mobilizing with physical therapy weightbearing as tolerated on the right side. Continue DVT prophylaxis. Continue abduction pillow when in bed and continue standard precautions for the posterior approach hip replacement. Medical management as per Dr. Stark.
[2017-11-10 09:49] LABS: Lymphocytes % 5 % (10-50); Monocytes % 4 % (2-9); Neutrophils % 91 % (42-76); Total Cells Counted 100
--- NOTE | 2017-11-10 15:21 | Progress Note ---
Subjective Date: 11/10/17 Time: 15:18 Principal diagnosis: post op bipolar hemiarthroplasty, right hip, day 1 Interval history: 87 yo WF sitting at bedside in NAD. Working with PT. Daughter relates pt has had 2 BM's since this AM. Abdominal swelling noted overnight with KUB showing bowel gas pattern suggestive of ileus. No vomiting. Denies any chest pain Exam Vital signs and Labs for Last 24 Hours: Temp Pulse Resp BP Pulse Ox 97.6 F 70 18 111/47 91 L 11/10/17 15:02 11/10/17 15:02 11/10/17 15:02 11/10/17 15:02 11/10/17 15:02 Laboratory Results - last 24 hr 11/08/17 06:35: Crossmatch (AHG) See Detail 11/10/17 07:00: WBC 20.4 H*, RBC 3.11 L, Hgb 9.5 L, Hct 30.5 L, MCV 98.3, MCH 30.6, MCHC 31.1 L, RDW 13.7, Plt Count 250, MPV 9.1, Neut % (Auto) 85.7 H, Lymph % (Auto) 7.5 L, [place] % (Auto) 6.4, Eos % (Auto) 0.3, Baso % (Auto) 0.2, Neut # (Auto) 17.5 H, Lymph # (Auto) 1.5, [place] # (Auto) 1.3 H, Eos # (Auto) 0.1 , Baso # (Auto) 0.0, Total Counted 100, Neutrophils % (Manual) 91 H, Lymphocytes % (Manual) 5 L, Monocytes % (Manual) 4, Platelet Estimate Normal 11/10/17 07:00: Sodium 136, Potassium 3.8, Chloride 100, Carbon Dioxide 27, Anion Gap 12.8, BUN 23 H D, Creatinine 1.67 H D, Estimated Creat Clear 18, Estimated GFR 29 L, Est GFR ( Amer) 35 L D, Glucose 122 H 11/10/17 07:00: PT 12.3 H, INR 1.14 H I & O for Last 24 hours: Intake & Output 11/08/17 11/09/17 11/10/17 11/11/17 11:59 11:59 11:59 11:59 Intake Total 1000 / 1000 560 / 560 2071 Output Total 175 / 175 200 / 200 1250 / 1250 Balance 825 / 825 360 / 360 822 / 822 Weight 104 lb 2 oz 104 lb 1.989 oz Microbiology Reports for the Last 24 Hours: Microbiology 11/08/17 08:05 Urine,Catheterized Urine Culture - Preliminary 11/08/17 08:37 Hip,Right Gram Stain - Final 11/08/17 08:37 Hip,Right Surgical Biopsy Culture - Preliminary NO GROWTH AFTER 24 HOURS - *Routine Respiratory Exam Present: CTA bilaterally - *Routine Cardiovascular Exam Present: RRR, murmur - *Routine Abdominal Exam Present: distended Progress Note: A&P (1) Status post right hip replacement Status: Acute Current Visit: Yes (2) Aortic valve stenosis Status: Acute Current Visit: Yes (3) CAD (coronary artery disease) Status: Chronic Current Visit: No (4) Cardiac pacemaker in situ Status: Chronic Current Visit: No (5) Atrial fibrillation Status: Chronic Current Visit: No (6) Cardiomyopathy Status: Chronic Current Visit: No (7) HLD (hyperlipidemia) Status: Chronic Current Visit: No (8) HTN (hypertension) Status: Chronic Current Visit: No (9) Mitral valve regurgitation Status: Chronic Current Visit: No (10) Leukocytosis Status: Acute Current Visit: Yes (11) Anemia Status: Acute Current Visit: No (12) Abdominal pain Status: Acute Current Visit: Yes Assessment and Plan for All Diagnoses:: Cardiac status stable. Elevated WBC noted without elevated temp. Small effusion on CXR, otherwise unremarkable. KUB suggestive of ileus but pt with BM's today.
--- NOTE | 2017-11-10 16:29 | Progress Note ---
Subjective Date: 11/10/17 Time: 15:30 Principal diagnosis: post op bipolar hemiarthroplasty, right hip, day 2 Interval history: Patient is status post bipolar hemiarthroplasty RIGHT hip, post op day #2. Patient is sitting out in the chair. Says she is feeling a lot better now compared to this morning. She says she had 2 bowel movements today. She reports less abdominal discomfort and distention. No history of any nausea or vomiting. She says her pain is well-controlled with medication. No history of any cough, chest pain, shortness of breath or palpitations. No history of any distal tingling or numbness. PN: Obj Ex Vital signs: Temp Pulse Resp BP Pulse Ox 97.6 F 70 18 111/47 91 L 11/10/17 15:02 11/10/17 15:02 11/10/17 15:02 11/10/17 15:02 11/10/17 15:02 Narrative: Exam General appearance: alert, active, awake, no acute distress ENT: Mucous membranes moist Cardiovascular: regular rate & rhythm, normal peripheral pulses, Respiratory: clear to auscultation, normal breath sounds ABD: Diffuse distention and tenderness noted; bowel sounds present over all 4 quadrants Genitourinary: Catheter in situ. Neuro: alert, oriented 3, no deficit Psych: normal mood and affect On examination of the lower extremities the limb lengths are equal. Thigh and calf are soft and nontender. On examination of the right hip, the dressings are clean, dry and intact. I have changed the surgical dressings on the wound appears clean, dry and healthy. No erythema, induration or discharge noted. No evidence of any infection or other complications noted. Distal pulses are 1+ . Distal sensation is intact to light touch throughout. No motor deficits noted distally. - Urinary Catheter Management Bryant Cath placed during this visit: yes Urethral indwelling: Yes Reason for continuing: Surgical procedure Insertion date: 11/08/17 Insertion time: 08:05 Progress Note: A&P (1) Status post right hip replacement Status: Acute Current Visit: Yes (2) Aortic valve stenosis Status: Acute Current Visit: Yes (3) CAD (coronary artery disease) Status: Chronic Current Visit: No (4) Cardiac pacemaker in situ Status: Chronic Current Visit: No (5) Atrial fibrillation Status: Chronic Current Visit: No (6) Cardiomyopathy Status: Chronic Current Visit: No (7) HLD (hyperlipidemia) Status: Chronic Current Visit: No (8) HTN (hypertension) Status: Chronic Current Visit: No (9) Mitral valve regurgitation Status: Chronic Current Visit: No (10) Leukocytosis Status: Acute Current Visit: Yes (11) Anemia Status: Acute Current Visit: No (12) Abdominal pain Status: Acute Current Visit: Yes (13) Postoperative ileus Status: Acute Current Visit: Yes Assessment and Plan for All Diagnoses:: Discussed with Dr. Rice, on-call general surgeon-he has recommended checking serum potassium and serum magnesium, observation, hydration and chewing sugar- free bubblegum Changed the dressings over the right hip-incision looks healthy Continue rest of the management as before Repeat labs tomorrow- CBC, BMP and add serum magnesium
[2017-11-11 07:28] LABS: Basophils % 0.1 % (0.1-2.0); Eosinophils % 0.3 % (0.1-12.0); Hematocrit 24.7 % (37.0-47.0); Lymphocytes # 0.7 K/mm3 (0.7-4.5); Lymphocytes % 5.9 K/mm3 (10-50); Mean Corpuscular Hemoglobin 31.1 pg (27.0-31.2); Mean Corpuscular Volume 96.9 fl (81-99); Mean Platelet Volume 8.7 fl (7.4-10.4); Monocytes # 0.7 K/mm3 (0.1-1.0); Monocytes % 5.9 % (1.7-9.3); Neutrophils # 10.5 K/mm3 (1.8-7.8); Neutrophils % 87.8 % (37.0-80.0); Platelet Count 181 K/mm3 (142-424); Red Blood Count 2.55 M/mm3 (4.20-5.40); Red Cell Distribution Width 13.9 % (11.5-17.5)
[2017-11-11 07:39] LABS: INR 1.14 (0.9-1.1); Prothrombin Time 12.3 seconds (9.4-11.8)
[2017-11-11 07:45] LABS: Hemoglobin 7.9 g/dL (12.2-16.2)
[2017-11-11 07:47] LABS: Anion Gap 11.8 mEq/L (5-15); Potassium 3.8 mmoL/L (3.5-5.1)
--- NOTE | 2017-11-11 08:28 | Progress Note ---
Subjective Date: 11/11/17 Time: 08:25 Principal diagnosis: post op bipolar hemiarthroplasty, right hip, day 1 Interval history: 87 yo WF in bed in NAD. Some soreness in hip but overall doing well. No chest pains. Ambulating with PT. Still having BM's. Exam Vital signs and Labs for Last 24 Hours: Temp Pulse Resp BP Pulse Ox 98.2 F 78 18 92/40 90 L 11/11/17 07:16 11/11/17 08:10 11/11/17 07:16 11/11/17 07:16 11/11/17 07:16 Laboratory Results - last 24 hr 11/08/17 06:35: Crossmatch (AHG) See Detail 11/10/17 07:00: Total Counted 100, Neutrophils % (Manual) 91 H, Lymphocytes % ( Manual) 5 L, Monocytes % (Manual) 4, Platelet Estimate Normal 11/11/17 06:05: PT 12.3 H, INR 1.14 H 11/11/17 06:05: WBC 12.0 H D, RBC 2.55 L, Hgb 7.9 L*, Hct 24.7 L, MCV 96.9, MCH 31.1, MCHC 32.0, RDW 13.9, Plt Count 181 D, MPV 8.7, Neut % (Auto) 87.8 H, Lymph % (Auto) 5.9 L, [place] % (Auto) 5.9, Eos % (Auto) 0.3, Baso % (Auto) 0.1, Neut # (Auto) 10.5 H, Lymph # (Auto) 0.7, [place] # (Auto) 0.7, Eos # (Auto) 0.0, Baso # (Auto) 0.0 11/11/17 06:05: Sodium 135 L, Potassium 3.8, Chloride 101, Carbon Dioxide 26, Anion Gap 11.8, BUN 26 H, Creatinine 1.28 H D, Estimated Creat Clear 23, Estimated GFR 39 L, Est GFR ( Amer) 48 L D, Glucose 100, Magnesium 1.5 I & O for Last 24 hours: Intake & Output 11/08/17 11/09/17 11/10/17 11/11/17 11:59 11:59 11:59 11:59 Intake Total 1000 / 1000 560 / 560 2071 1792 / 1792 Output Total 175 / 175 200 / 200 1250 / 1250 300 / 300 Balance 825 / 825 360 / 360 822 / 822 1492 / 1492 Weight 104 lb 2 oz 104 lb 1.989 oz Microbiology Reports for the Last 24 Hours: Microbiology 11/08/17 08:05 Urine,Catheterized Urine Culture - Preliminary 11/08/17 08:37 Hip,Right Gram Stain - Final 11/08/17 08:37 Hip,Right Surgical Biopsy Culture - Preliminary NO GROWTH AFTER 48 HOURS - *Routine Respiratory Exam Present: CTA bilaterally - *Routine Cardiovascular Exam Present: RRR, murmur Progress Note: A&P (1) Status post right hip replacement Status: Acute Current Visit: Yes (2) Aortic valve stenosis Status: Acute Current Visit: Yes (3) CAD (coronary artery disease) Status: Chronic Current Visit: No (4) Cardiac pacemaker in situ Status: Chronic Current Visit: No (5) Atrial fibrillation Status: Chronic Current Visit: No (6) Cardiomyopathy Status: Chronic Current Visit: No (7) HLD (hyperlipidemia) Status: Chronic Current Visit: No (8) HTN (hypertension) Status: Chronic Current Visit: No (9) Mitral valve regurgitation Status: Chronic Current Visit: No (10) Leukocytosis Status: Acute Current Visit: Yes (11) Anemia Status: Acute Current Visit: No (12) Abdominal pain Status: Acute Current Visit: Yes (13) Postoperative ileus Status: Acute Current Visit: Yes Assessment and Plan for All Diagnoses:: Cardiac status stable. Hgb down to 7.9 with plans to transfuse blood today.
[2017-11-11 09:49] LABS: Lymphocytes % 5 % (10-50); Monocytes % 3 % (2-9); Neutrophils % 92 % (42-76); Total Cells Counted 100
[2017-11-11 09:50] LABS: Hypochromasia 1+
--- NOTE | 2017-11-11 09:57 | Progress Note ---
Subjective Date: 11/11/17 Time: 09:45 Principal diagnosis: post op bipolar hemiarthroplasty, right hip, day 3 Interval history: Patient is status post bipolar hemiarthroplasty RIGHT hip, post op day #3. Patient is lying down in the bed and says she is feeling lazy today. She says the abdominal pain and discomfort is less today compared to yesterday. She says she has no nausea or vomiting and has opened her bowels earlier today. She says her pain is well-controlled with medication. No history of any cough, chest pain, shortness of breath or palpitations. No history of any distal tingling or numbness. PN: Obj Ex Vital signs: Temp Pulse Resp BP Pulse Ox 98.2 F 78 18 92/40 90 L 11/11/17 07:16 11/11/17 08:10 11/11/17 07:16 11/11/17 07:16 11/11/17 07:16 Narrative: Laboratory Results - last 24 hr 11/08/17 06:35: Crossmatch (AHG) See Detail 11/11/17 06:05: PT 12.3 H, INR 1.14 H 11/11/17 06:05: WBC 12.0 H D, RBC 2.55 L, Hgb 7.9 L*, Hct 24.7 L, MCV 96.9, MCH 31.1, MCHC 32.0, RDW 13.9, Plt Count 181 D, MPV 8.7, Neut % (Auto) 87.8 H, Lymph % (Auto) 5.9 L, [place] % (Auto) 5.9, Eos % (Auto) 0.3, Baso % (Auto) 0.1, Neut # (Auto) 10.5 H, Lymph # (Auto) 0.7, [place] # (Auto) 0.7, Eos # (Auto) 0.0, Baso # (Auto) 0.0, Total Counted 100, Neutrophils % (Manual) 92 H, Lymphocytes % (Manual) 5 L, Monocytes % (Manual) 3, Platelet Estimate Normal, Hypochromasia 1+ 11/11/17 06:05: Sodium 135 L, Potassium 3.8, Chloride 101, Carbon Dioxide 26, Anion Gap 11.8, BUN 26 H, Creatinine 1.28 H D, Estimated Creat Clear 23, Estimated GFR 39 L, Est GFR ( Amer) 48 L D, Glucose 100, Magnesium 1.5 11/11/17 10:33: Blood Type A Positive, Antibody Screen Negative, Crossmatch (AHG ) See Detail Exam General appearance: alert, active, awake, no acute distress ENT: Mucous membranes moist Cardiovascular: regular rate & rhythm, normal peripheral pulses, Respiratory: clear to auscultation, normal breath sounds ABD: Mild distention and diffuse tenderness noted; bowel sounds heard over all 4 quadrants Neuro: alert, no deficit, oriented x 3 Psych: normal mood and affect On examination of the lower extremities the limb lengths are equal. Thigh and calf are soft and nontender. On examination of the right hip, the dressings are clean, dry and intact. No evidence of any infection or other complications noted. Distal pulses are 1+. Distal sensation is intact to light touch throughout. No motor deficits noted distally. - Urinary Catheter Management Bryant Cath placed during this visit: yes Urethral indwelling: No Insertion date: 11/08/17 Insertion time: 08:05 Progress Note: A&P (1) Status post right hip replacement Status: Acute Current Visit: Yes (2) Aortic valve stenosis Status: Acute Current Visit: Yes (3) CAD (coronary artery disease) Status: Chronic Current Visit: No (4) Cardiac pacemaker in situ Status: Chronic Current Visit: No (5) Atrial fibrillation Status: Chronic Current Visit: No (6) Cardiomyopathy Status: Chronic Current Visit: No (7) HLD (hyperlipidemia) Status: Chronic Current Visit: No (8) HTN (hypertension) Status: Chronic Current Visit: No (9) Mitral valve regurgitation Status: Chronic Current Visit: No (10) Leukocytosis Status: Acute Current Visit: Yes (11) Anemia Status: Acute Current Visit: No (12) Abdominal pain Status: Acute Current Visit: Yes (13) Postoperative ileus Status: Acute Current Visit: Yes Assessment and Plan for All Diagnoses:: I reviewed the clinical findings and progress with the patient and family. Overall patient is doing well and reports improvement with her abdominal distention and discomfort. Her white cell count has come back to within normal limits. She is going to receive 2 units of packed red cells today for low H&H. Patient is mobilizing with physical therapy weightbearing as tolerated on the right side and to continue the same. Continue DVT prophylaxis. Continue abduction pillow when in bed and continue standard precautions for the posterior approach hip replacement. Likely discharge to the [facility] tomorrow if medically stable. Medical management as per Dr. Stark.
--- NOTE | 2017-11-11 10:15 | Progress Note ---
Internal Medicine - PN: Subj *Date: 11/11/17 *Time: 10:12 Interval history: Patient still feels week today, abdomen is still distended, had some diarrhea stools overnight. Exam Vital signs and Labs for Last 24 Hours: Temp Pulse Resp BP Pulse Ox 98.2 F 78 18 92/40 90 L 11/11/17 07:16 11/11/17 08:10 11/11/17 07:16 11/11/17 07:16 11/11/17 07:16 Laboratory Results - last 24 hr 11/08/17 06:35: Crossmatch (AHG) See Detail 11/11/17 06:05: PT 12.3 H, INR 1.14 H 11/11/17 06:05: WBC 12.0 H D, RBC 2.55 L, Hgb 7.9 L*, Hct 24.7 L, MCV 96.9, MCH 31.1, MCHC 32.0, RDW 13.9, Plt Count 181 D, MPV 8.7, Neut % (Auto) 87.8 H, Lymph % (Auto) 5.9 L, [place] % (Auto) 5.9, Eos % (Auto) 0.3, Baso % (Auto) 0.1, Neut # (Auto) 10.5 H, Lymph # (Auto) 0.7, [place] # (Auto) 0.7, Eos # (Auto) 0.0, Baso # (Auto) 0.0, Total Counted 100, Neutrophils % (Manual) 92 H, Lymphocytes % (Manual) 5 L, Monocytes % (Manual) 3, Platelet Estimate Normal, Hypochromasia 1+ 11/11/17 06:05: Sodium 135 L, Potassium 3.8, Chloride 101, Carbon Dioxide 26, Anion Gap 11.8, BUN 26 H, Creatinine 1.28 H D, Estimated Creat Clear 23, Estimated GFR 39 L, Est GFR ( Amer) 48 L D, Glucose 100, Magnesium 1.5 Vital Signs Temp Pulse Pulse Resp BP Pulse Ox 11/11/17 08:10 78 11/11/17 07:16 98.2 F 77 18 92/40 90 L 11/11/17 04:00 98.7 F 79 16 98/50 98 11/10/17 21:15 96 11/10/17 20:04 92 L 11/10/17 19:38 98.2 F 70 16 100/60 96 11/10/17 15:02 97.6 F 70 18 111/47 91 L Intake and Output 11/10/17 11/11/17 11/11/17 19:59 03:59 11:59 Intake Total 964 / 964 828 / 828 Output Total 300 / 300 Balance 664 / 664 828 / 828 Intake: Intake, Oral Amount 360 / 360 240 / 240 Intake, Other Amount Intake, Total IV Amount 604 / 604 578 / 578 0.9 % Sodium Chloride 1,000 ml 604 / 604 578 / 578 @ 50 mls/hr IV .Q20H [facility] Rx#: [id number] Output: Output, Urine Amount 300 / 300 Other: Intake, Other Source Saline Solution Number of Voids 2 Number of Bowel Movements 1 Weight 104 lb 1.989 oz Patient Weight 11/11/17 11:59 Weight 104 lb 1.989 oz I & O for Last 24 hours: Intake & Output 11/08/17 11/09/17 11/10/17 11/11/17 11:59 11:59 11:59 11:59 Intake Total 1000 / 1000 560 / 560 2072 / 2072 1792 / 1792 Output Total 175 / 175 200 / 200 1250 / 1250 300 / 300 Balance 825 / 825 360 / 360 822 / 822 1492 / 1492 Weight 104 lb 2 oz 104 lb 1.989 oz Microbiology Reports for the Last 24 Hours: Microbiology 11/08/17 08:05 Urine,Catheterized Urine Culture - Preliminary 11/08/17 08:37 Hip,Right Gram Stain - Final 11/08/17 08:37 Hip,Right Surgical Biopsy Culture - Preliminary NO GROWTH AFTER 48 HOURS - Constitutional no acute distress - *Routine Respiratory Exam Present: CTA bilaterally - *Routine Cardiovascular Exam Present: RRR - *Routine Abdominal Exam Present: normoactive bowel sounds, tenderness (diffuse), distended (less today) Assessment and Plan (1) Status post right hip replacement Current visit: Yes Status: Acute Category: Surgical Code(s): Z96.641 - Presence of right artificial hip joint (2) Aortic valve stenosis Current visit: Yes Status: Acute Category: Medical Code(s): I35.0 - Nonrheumatic aortic (valve) stenosis (3) CAD (coronary artery disease) Current visit: No Status: Chronic Qualifiers: Coronary Disease-Associated Artery/Lesion type: [place] artery [place] vs. transplanted heart: [place] heart Associated angina: without angina Qualified Code(s): I25.10 - Atherosclerotic heart disease of [place] coronary artery without angina pectoris Category: Medical Code(s): I25.10 - Atherosclerotic heart disease of [place] coronary artery without angina pectoris (4) Cardiac pacemaker in situ Current visit: No Status: Chronic Category: Medical Code(s): Z95.0 - Presence of cardiac pacemaker (5) Atrial fibrillation Current visit: No Status: Chronic Qualifiers: Atrial fibrillation type: permanent Qualified Code(s): I48.2 - Chronic atrial fibrillation Category: Medical Code(s): I48.91 - Unspecified atrial fibrillation (6) Cardiomyopathy Current visit: No Status: Chronic Category: Medical Code(s): I42.9 - Cardiomyopathy, unspecified (7) HLD (hyperlipidemia) Current visit: No Status: Chronic Qualifiers: Hyperlipidemia type: mixed hyperlipidemia Qualified Code(s): E78.2 - Mixed hyperlipidemia Category: Medical Code(s): E78.5 - Hyperlipidemia, unspecified (8) HTN (hypertension) Current visit: No Status: Chronic Qualifiers: Hypertension type: essential hypertension Qualified Code(s): I10 - Essential (primary) hypertension Category: Medical Code(s): I10 - Essential (primary) hypertension (9) Mitral valve regurgitation Current visit: No Status: Chronic Category: Medical Code(s): I34.0 - Nonrheumatic mitral (valve) insufficiency (10) Leukocytosis Current visit: Yes Status: Acute Category: Medical Code(s): D72.829 - Elevated white blood cell count, unspecified (11) Anemia Current visit: No Status: Acute Category: Medical Code(s): D64.9 - Anemia , unspecified (12) Abdominal pain Current visit: Yes Status: Acute Category: Medical Code(s): R10.9 - Unspecified abdominal pain (13) Postoperative ileus Current visit: Yes Status: Acute Category: Medical Code(s): K91.89 - Other postprocedural complications and disorders of digestive system; K56.7 - Ileus, unspecified - Assessment and plan all Dx Assessment and Plan for all problems:: Plan to transfuse 2 units of PRBCs today, hemocult stool and increase Protonix to twice daily dosing.
[2017-11-12 07:00] LABS: Basophils % 0.3 % (0.1-2.0); Eosinophils # 0.1 K/mm3 (0.0-0.4); Hematocrit 33.7 % (37.0-47.0); Hemoglobin 10.8 g/dL (12.2-16.2); Lymphocytes # 0.7 K/mm3 (0.7-4.5); Lymphocytes % 6.8 K/mm3 (10-50); Mean Corpuscular Hemoglobin 30.3 pg (27.0-31.2); Mean Corpuscular Volume 94.5 fl (81-99); Mean Platelet Volume 8.6 fl (7.4-10.4); Monocytes # 0.7 K/mm3 (0.1-1.0); Neutrophils % 84.9 % (37.0-80.0); Platelet Count 220 K/mm3 (142-424); Red Blood Count 3.57 M/mm3 (4.20-5.40); Red Cell Distribution Width 15.2 % (11.5-17.5); White Blood Count 10.6 K/mm3 (4.8-10.8)
[2017-11-12 07:04] LABS: Anion Gap 11.5 mEq/L (5-15); Potassium 3.5 mmoL/L (3.5-5.1)
[2017-11-12 09:05] LABS: INR 1.07 (0.9-1.1); Prothrombin Time 11.6 seconds (9.4-11.8)
--- NOTE | 2017-11-12 09:13 | Progress Note ---
Internal Medicine - PN: Subj *Date: 11/12/17 *Time: 09:10 Interval history: Patient slept well last night, but she is very drowsy this morning, still has some abd pain, eating very little. Exam Vital signs and Labs for Last 24 Hours: Temp Pulse Resp BP Pulse Ox 98.7 F 71 16 98/47 91 L 11/12/17 08:00 11/12/17 08:00 11/12/17 08:00 11/12/17 08:00 11/12/17 08:00 Laboratory Results - last 24 hr 11/11/17 06:05: Total Counted 100, Neutrophils % (Manual) 92 H, Lymphocytes % ( Manual) 5 L, Monocytes % (Manual) 3, Platelet Estimate Normal, Hypochromasia 1+ 11/11/17 10:33: Blood Type A Positive, Antibody Screen Negative, Crossmatch (G ) See Detail 11/12/17 06:22: WBC 10.6, RBC 3.57 L D, Hgb 10.8 L, Hct 33.7 L, MCV 94.5, MCH 30.3, MCHC 32.0, RDW 15.2, Plt Count 220, MPV 8.6, Neut % (Auto) 84.9 H, Lymph % (Auto) 6.8 L, [place] % (Auto) 7.0, Eos % (Auto) 1.0, Baso % (Auto) 0.3, Neut # ( Auto) 9.0 H, Lymph # (Auto) 0.7, [place] # (Auto) 0.7, Eos # (Auto) 0.1, Baso # ( Auto) 0.0 11/12/17 06:22: Sodium 134 L, Potassium 3.5, Chloride 100, Carbon Dioxide 26, Anion Gap 11.5, BUN 21 H, Creatinine 1.14 H, Estimated Creat Clear 26, Estimated GFR 45 L, Est GFR ( Amer) 55 L, Glucose 99 11/12/17 06:22: PT 11.6, INR 1.07 Vital Signs Temp Pulse Pulse Resp BP BP Pulse Ox 11/12/17 08:00 98.7 F 71 16 98/47 91 L 11/12/17 03:55 97.8 F 70 18 96/45 91 L 11/11/17 20:20 90 L 11/11/17 20:00 90 L 11/11/17 19:19 98.6 F 69 16 97/49 90 L 11/11/17 17:55 98.7 F 70 16 100/44 92 L 11/11/17 16:15 98.4 F 72 18 111/51 91 L 11/11/17 16:00 98.6 F 71 16 109/49 91 L 11/11/17 15:45 98.2 F 71 16 113/50 91 L 11/11/17 15:30 98.8 F 70 18 108/47 92 L 11/11/17 15:25 98.8 F 70 18 107/47 92 L 11/11/17 15:20 98.4 F 70 18 108/47 93 L 11/11/17 15:15 98.5 F 70 18 106/51 92 L 11/11/17 15:05 98.1 F 73 16 108/50 92 L 11/11/17 15:00 98.1 F 70 16 110/49 93 L 11/11/17 14:40 98.5 F 70 18 106/48 92 L 11/11/17 13:40 99.2 F 70 16 101/44 90 L 11/11/17 13:25 98.5 F 70 16 99/43 90 L 11/11/17 13:10 98.1 F 70 18 101/44 90 L 11/11/17 12:55 98.4 F 70 16 100/44 91 L 11/11/17 12:50 98.5 F 70 18 99/44 92 L 11/11/17 12:45 98.5 F 70 18 97/41 91 L 11/11/17 12:40 98.0 F 70 16 93/40 93 L 11/11/17 12:35 97.6 F 71 16 91/41 90 L Intake and Output 11/11/17 11/12/17 11/12/17 19:59 03:59 11:59 Intake Total 317 / 317 Output Total 50 / 50 Balance 267 / 267 Intake: Intake, Oral Amount 120 / 120 Intake, Other Amount 197 / 197 Red Blood Cells Unit 62 / 62 [id number] Red Blood Cells Unit 135 / 135 [id number] Output: Output, Urine Amount 50 / 50 Other: Number of Voids 1 Number of Unmeasured Voids 1 I & O for Last 24 hours: Intake & Output 11/09/17 11/10/17 11/11/17 11/12/17 11:59 11:59 11:59 11:59 Intake Total 560 / 560 2072 / 2072 1792 / 1792 317 / 317 Output Total 200 / 200 1250 / 1250 300 / 300 50 / 50 Balance 360 / 360 822 / 822 1492 / 1492 267 / 267 Weight 104 lb 2 oz 104 lb 1.989 oz Microbiology Reports for the Last 24 Hours: Microbiology 11/08/17 08:37 Hip,Right Gram Stain - Final 11/08/17 08:37 Hip,Right Surgical Biopsy Culture - Preliminary NO GROWTH AFTER 72 HOURS 11/08/17 08:05 Urine,Catheterized Urine Culture - Final Yeast - Constitutional no acute distress (drowsy, awakens to voice) - *Routine HEENT Exam ENT: Present: mucous membranes moist - *Routine Respiratory Exam Present: CTA bilaterally - *Routine Cardiovascular Exam Present: RRR - *Routine Abdominal Exam Present: soft, tenderness (diffuse to deep palpation) Assessment and Plan (1) Status post right hip replacement Current visit: Yes Status: Acute Category: Surgical Code(s): Z96.641 - Presence of right artificial hip joint (2) Aortic valve stenosis Current visit: Yes Status: Acute Category: Medical Code(s): I35.0 - Nonrheumatic aortic (valve) stenosis (3) CAD (coronary artery disease) Current visit: No Status: Chronic Qualifiers: Coronary Disease-Associated Artery/Lesion type: [place] artery [place] vs. transplanted heart: [place] heart Associated angina: without angina Qualified Code(s): I25.10 - Atherosclerotic heart disease of [place] coronary artery without angina pectoris Category: Medical Code(s): I25.10 - Atherosclerotic heart disease of [place] coronary artery without angina pectoris (4) Cardiac pacemaker in situ Current visit: No Status: Chronic Category: Medical Code(s): Z95.0 - Presence of cardiac pacemaker (5) Atrial fibrillation Current visit: No Status: Chronic Qualifiers: Atrial fibrillation type: permanent Qualified Code(s): I48.2 - Chronic atrial fibrillation Category: Medical Code(s): I48.91 - Unspecified atrial fibrillation (6) Cardiomyopathy Current visit: No Status: Chronic Category: Medical Code(s): I42.9 - Cardiomyopathy, unspecified (7) HLD (hyperlipidemia) Current visit: No Status: Chronic Qualifiers: Hyperlipidemia type: mixed hyperlipidemia Qualified Code(s): E78.2 - Mixed hyperlipidemia Category: Medical Code(s): E78.5 - Hyperlipidemia, unspecified (8) HTN (hypertension) Current visit: No Status: Chronic Qualifiers: Hypertension type: essential hypertension Qualified Code(s): I10 - Essential (primary) hypertension Category: Medical Code(s): I10 - Essential (primary) hypertension (9) Mitral valve regurgitation Current visit: No Status: Chronic Category: Medical Code(s): I34.0 - Nonrheumatic mitral (valve) insufficiency (10) Leukocytosis Current visit: Yes Status: Acute Category: Medical Code(s): D72.829 - Elevated white blood cell count, unspecified (11) Anemia Current visit: No Status: Acute Category: Medical Code(s): D64.9 - Anemia , unspecified (12) Abdominal pain Current visit: Yes Status: Acute Category: Medical Code(s): R10.9 - Unspecified abdominal pain (13) Postoperative ileus Current visit: Yes Status: Acute Category: Medical Code(s): K91.89 - Other postprocedural complications and disorders of digestive system; K56.7 - Ileus, unspecified - Assessment and plan all Dx Assessment and Plan for all problems:: Will hold alprazolam and repeat Abd xray today.
--- NOTE | 2017-11-12 09:43 | Progress Note ---
Subjective Date: 11/12/17 Time: 09:35 Principal diagnosis: post op bipolar hemiarthroplasty, right hip, day 3 Interval history: 87 yo WF in bed in NAD. Drowsy and tired but states she slept all night. Received 2 units of blood yesterday. Denies any chest pain or SOA. Exam Vital signs and Labs for Last 24 Hours: Temp Pulse Resp BP Pulse Ox 98.7 F 71 16 98/47 91 L 11/12/17 08:00 11/12/17 08:00 11/12/17 08:00 11/12/17 08:00 11/12/17 08:00 Laboratory Results - last 24 hr 11/11/17 06:05: Total Counted 100, Neutrophils % (Manual) 92 H, Lymphocytes % ( Manual) 5 L, Monocytes % (Manual) 3, Platelet Estimate Normal, Hypochromasia 1+ 11/11/17 10:33: Blood Type A Positive, Antibody Screen Negative, Crossmatch (AHG ) See Detail 11/12/17 06:22: WBC 10.6, RBC 3.57 L D, Hgb 10.8 L, Hct 33.7 L, MCV 94.5, MCH 30.3, MCHC 32.0, RDW 15.2, Plt Count 220, MPV 8.6, Neut % (Auto) 84.9 H, Lymph % (Auto) 6.8 L, [place] % (Auto) 7.0, Eos % (Auto) 1.0, Baso % (Auto) 0.3, Neut # ( Auto) 9.0 H, Lymph # (Auto) 0.7, [place] # (Auto) 0.7, Eos # (Auto) 0.1, Baso # ( Auto) 0.0 11/12/17 06:22: Sodium 134 L, Potassium 3.5, Chloride 100, Carbon Dioxide 26, Anion Gap 11.5, BUN 21 H, Creatinine 1.14 H, Estimated Creat Clear 26, Estimated GFR 45 L, Est GFR ( Amer) 55 L, Glucose 99 11/12/17 06:22: PT 11.6, INR 1.07 I & O for Last 24 hours: Intake & Output 11/09/17 11/10/17 11/11/17 11/12/17 11:59 11:59 11:59 11:59 Intake Total 560 / 560 2071 / 2071 1792 / 1792 317 / 317 Output Total 200 / 200 1250 / 1250 300 / 300 50 / 50 Balance 360 / 360 822 / 822 1492 / 1492 267 / 267 Weight 104 lb 2 oz 104 lb 1.989 oz Microbiology Reports for the Last 24 Hours: Microbiology 11/08/17 08:37 Hip,Right Gram Stain - Final 11/08/17 08:37 Hip,Right Surgical Biopsy Culture - Preliminary NO GROWTH AFTER 72 HOURS 11/08/17 08:05 Urine,Catheterized Urine Culture - Final Yeast - *Routine Respiratory Exam Comments: Good air movement with mild basilar crackles that improve with deep breathing. - *Routine Cardiovascular Exam Present: RRR, murmur - *Routine Extremities Exam Absent: edema - *Routine Neurological Exam Sleepy but alert and answers questions appropriately. Progress Note: A&P (1) Status post right hip replacement Status: Acute Current Visit: Yes (2) Aortic valve stenosis Status: Acute Current Visit: Yes (3) CAD (coronary artery disease) Status: Chronic Current Visit: No (4) Cardiac pacemaker in situ Status: Chronic Current Visit: No (5) Atrial fibrillation Status: Chronic Current Visit: No (6) Cardiomyopathy Status: Chronic Current Visit: No (7) HLD (hyperlipidemia) Status: Chronic Current Visit: No (8) HTN (hypertension) Status: Chronic Current Visit: No (9) Mitral valve regurgitation Status: Chronic Current Visit: No (10) Leukocytosis Status: Acute Current Visit: Yes (11) Anemia Status: Acute Current Visit: No (12) Abdominal pain Status: Acute Current Visit: Yes (13) Postoperative ileus Status: Acute Current Visit: Yes Assessment and Plan for All Diagnoses:: Cardiac status stable. Chronic a.fib, on dig, diltiazem and coumadin Mixed valve disease (, [place], [place]) CAD, moderate LAD disease by cath 2014, stable on meds. Mild Cardiomyopathy with LVEF 45% by echo this month Pt to have KUB today due to continued abdominal discomfort.
--- NOTE | 2017-11-12 14:26 | Progress Note ---
Subjective Date: 11/12/17 Time: 12:45 Principal diagnosis: post op bipolar hemiarthroplasty, right hip, day 4 Interval history: Patient is status post bipolar hemiarthroplasty RIGHT hip, post op day #4. Patient is lying down in the bed and says she is feeling weak. She says the abdominal pain and discomfort is slowly improving compared to yesterday. She says she has no nausea or vomiting and has opened her bowels earlier today. She says she does not feel like eating and is not eating much. She says her pain is well-controlled with medication. No history of any cough, chest pain, shortness of breath or palpitations. No history of any distal tingling or numbness. PN: Obj Ex Vital signs: Temp Pulse Resp BP Pulse Ox 98.7 F 71 16 98/47 91 L 11/12/17 08:00 11/12/17 09:36 11/12/17 08:00 11/12/17 08:00 11/12/17 08:00 Narrative: Laboratory Results - last 24 hr 11/11/17 10:33: Blood Type A Positive, Antibody Screen Negative, Crossmatch (AHG ) See Detail 11/12/17 06:22: WBC 10.6, RBC 3.57 L D, Hgb 10.8 L, Hct 33.7 L, MCV 94.5, MCH 30.3, MCHC 32.0, RDW 15.2, Plt Count 220, MPV 8.6, Neut % (Auto) 84.9 H, Lymph % (Auto) 6.8 L, [place] % (Auto) 7.0, Eos % (Auto) 1.0, Baso % (Auto) 0.3, Neut # ( Auto) 9.0 H, Lymph # (Auto) 0.7, [place] # (Auto) 0.7, Eos # (Auto) 0.1, Baso # ( Auto) 0.0 11/12/17 06:22: Sodium 134 L, Potassium 3.5, Chloride 100, Carbon Dioxide 26, Anion Gap 11.5, BUN 21 H, Creatinine 1.14 H, Estimated Creat Clear 26, Estimated GFR 45 L, Est GFR ( Amer) 55 L, Glucose 99 11/12/17 06:22: PT 11.6, INR 1.07 Intake & Output 0511/11/17 11/12/17 11/13/17 11:59 11:59 11:59 11:59 Intake Total 2071 / 2071 1792 / 1792 317 / 317 Output Total 1250 / 1250 300 / 300 50 / 50 Balance 822 / 822 1492 / 1492 267 / 267 Weight 104 lb 1.989 oz Exam General appearance: alert, active, awake, no acute distress ENT: Mucous membranes moist Cardiovascular: regular rate & rhythm, normal peripheral pulses, bilateral lower extremity edema Respiratory: clear to auscultation, normal breath sounds ABD: Mild distention and diffuse tenderness on deep palpation; bowel sounds heard over all 4 quadrants Neuro: alert, no deficit, oriented x 3 Psych: Appropriate mood and affect for her situation On examination of the lower extremities the limb lengths are equal. Thigh and calf are soft and nontender. On examination of the right hip, the dressings are clean, dry and intact. No evidence of any infection or other complications noted. Distal pulses are 1+. Distal sensation is intact to light touch throughout. No motor deficits noted distally. - Urinary Catheter Management [place] Cath placed during this visit: yes Urethral indwelling: No Insertion date: 11/08/17 Insertion time: 08:05 Progress Note: A&P (1) Status post right hip replacement Status: Acute Current Visit: Yes (2) Aortic valve stenosis Status: Acute Current Visit: Yes (3) CAD (coronary artery disease) Status: Chronic Current Visit: No (4) Cardiac pacemaker in situ Status: Chronic Current Visit: No (5) Atrial fibrillation Status: Chronic Current Visit: No (6) Cardiomyopathy Status: Chronic Current Visit: No (7) HLD (hyperlipidemia) Status: Chronic Current Visit: No (8) HTN (hypertension) Status: Chronic Current Visit: No (9) Mitral valve regurgitation Status: Chronic Current Visit: No (10) Leukocytosis Status: Acute Current Visit: Yes (11) Anemia Status: Acute Current Visit: No (12) Abdominal pain Status: Acute Current Visit: Yes (13) Postoperative ileus Status: Acute Current Visit: Yes Assessment and Plan for All Diagnoses:: I reviewed the clinical findings and progress with the patient and family. She still complaining of some abdominal distention and discomfort. She is also feeling weak and reports some pain in her right hip and mobilization. Repeat x- ray of her abdomen today showing some improvement with the ileus compared to the previous x-ray. Her white cell count has come back to within normal limits. She received 2 units of packed red cells yesterday and repeat H&H is satisfactory. Patient is mobilizing with physical therapy weightbearing as tolerated on the right side and to continue the same. Continue DVT prophylaxis. Continue abduction pillow when in bed and continue standard precautions for the posterior approach hip replacement. Given the persistent ileus with abdominal pain and discomfort, is going to stay in hospital until she makes further progress. I will be out of town over the weekend and my colleague, Dr. Crook has kindly agreed to see her in my absence. The surgical dressings were changed on the second postoperative day and need not be changed for 7-10 days unless clinically indicated. If she gets discharged over the weekend, I would like to see her in my office for follow-up in 10-14 days time. Medical management as per Dr. Stark.
[2017-11-13 07:24] VITALS: BP 121/54
--- NOTE | 2017-11-13 09:26 | Progress Note ---
Internal Medicine - PN: Subj *Date: 11/13/17 *Time: 09:23 Interval history: Patient feels better this morning, had some pain over night and received a dose of Morphine. She had no sedation. Ate more yesterday, has less abd pain. Exam Vital signs and Labs for Last 24 Hours: Temp Pulse Resp BP Pulse Ox 97.3 F L 85 18 121/54 93 L 11/13/17 07:23 11/13/17 07:23 11/13/17 07:23 11/13/17 07:23 11/13/17 08:00 Laboratory Results - last 24 hr 11/13/17 04:40: Stool Occult Blood Negative Vital Signs Temp Pulse Pulse Resp BP Pulse Ox 11/13/17 08:00 93 L 11/13/17 07:23 97.3 F L 85 18 121/54 93 L 11/13/17 04:00 98.4 F 85 24 145/69 95 11/12/17 21:00 92 L 11/12/17 20:00 97.5 F L 82 16 106/56 92 L 11/12/17 19:23 90 L 11/12/17 16:00 98.8 F 70 18 110/57 92 L 11/12/17 09:36 71 Intake and Output 11/12/17 11/13/17 11/13/17 19:59 03:59 11:59 Intake Total 750 / 750 Output Total 650 / 650 Balance 750 / 750 -650 / -650 Intake: Intake, Oral Amount 750 / 750 Output: Output, Urine Amount 650 / 650 Other: Number of Voids 4 1 Number of Unmeasured Voids 1 Number of Bowel Movements 1 I & O for Last 24 hours: Intake & Output 11/10/17 11/11/17 11/12/17 11/13/17 11:59 11:59 11:59 11:59 Intake Total 2072 / 2072 1792 / 1792 317 / 317 750 / 750 Output Total 1250 / 1250 300 / 300 50 / 50 650 / 650 Balance 822 / 822 1492 / 1492 267 / 267 100 / 100 Weight 104 lb 1.989 oz Microbiology Reports for the Last 24 Hours: Microbiology 11/08/17 08:37 Hip,Right Gram Stain - Final 11/08/17 08:37 Hip,Right Surgical Biopsy Culture - Preliminary NO GROWTH AFTER 4 DAYS - Constitutional no acute distress - *Routine HEENT Exam ENT: Present: mucous membranes moist - *Routine Respiratory Exam Present: CTA bilaterally - *Routine Cardiovascular Exam Present: RRR - *Routine Abdominal Exam Present: soft, normoactive bowel sounds, tenderness (much less today) - *Routine Extremities Exam Absent: cyanosis, clubbing, edema Assessment and Plan (1) Status post right hip replacement Current visit: Yes Status: Acute Category: Surgical Code(s): Z96.641 - Presence of right artificial hip joint (2) Aortic valve stenosis Current visit: Yes Status: Acute Category: Medical Code(s): I35.0 - Nonrheumatic aortic (valve) stenosis (3) CAD (coronary artery disease) Current visit: No Status: Chronic Qualifiers: Coronary Disease-Associated Artery/Lesion type: [place] artery [place] vs. transplanted heart: [place] heart Associated angina: without angina Qualified Code(s): I25.10 - Atherosclerotic heart disease of [place] coronary artery without angina pectoris Category: Medical Code(s): I25.10 - Atherosclerotic heart disease of [place] coronary artery without angina pectoris (4) Cardiac pacemaker in situ Current visit: No Status: Chronic Category: Medical Code(s): Z95.0 - Presence of cardiac pacemaker (5) Atrial fibrillation Current visit: No Status: Chronic Qualifiers: Atrial fibrillation type: permanent Qualified Code(s): I48.2 - Chronic atrial fibrillation Category: Medical Code(s): I48.91 - Unspecified atrial fibrillation (6) Cardiomyopathy Current visit: No Status: Chronic Category: Medical Code(s): I42.9 - Cardiomyopathy, unspecified (7) HLD (hyperlipidemia) Current visit: No Status: Chronic Qualifiers: Hyperlipidemia type: mixed hyperlipidemia Qualified Code(s): E78.2 - Mixed hyperlipidemia Category: Medical Code(s): E78.5 - Hyperlipidemia, unspecified (8) HTN (hypertension) Current visit: No Status: Chronic Qualifiers: Hypertension type: essential hypertension Qualified Code(s): I10 - Essential (primary) hypertension Category: Medical Code(s): I10 - Essential (primary) hypertension (9) Mitral valve regurgitation Current visit: No Status: Chronic Category: Medical Code(s): I34.0 - Nonrheumatic mitral (valve) insufficiency (10) Leukocytosis Current visit: Yes Status: Acute Category: Medical Code(s): D72.829 - Elevated white blood cell count, unspecified (11) Anemia Current visit: No Status: Acute Category: Medical Code(s): D64.9 - Anemia , unspecified (12) Abdominal pain Current visit: Yes Status: Acute Category: Medical Code(s): R10.9 - Unspecified abdominal pain (13) Postoperative ileus Current visit: Yes Status: Resolved Category: Medical Code(s): K91.89 - Other postprocedural complications and disorders of digestive system; K56.7 - Ileus, unspecified - Assessment and plan all Dx Assessment and Plan for all problems:: Patient has improved, plan discharge to critical access hospital today. Will increase Oxycodone dose and schedule Tylenol TID and continue Nystatin swish and swallow. She will need recheck of INR and CBC and BMP in 4 days. Right hip dressing should be changed in [address] Lopez and he would like to see patient in his office in 10 to 14 days.
--- NOTE | 2017-11-13 09:55 | Discharge Summary ---
General - General Admission date:: 11/08/17 Discharge date: 11/13/17 HPI HPI: Patient was admitted to [facility] after scheduled hip replacement. SHe had fractured her right hip a few months ago and at that time treatment was surgical pinning of the fracture. 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 Hospital Course Hospital Course: After right hip replacement patient received a total of 3 units of PRBCs due to anemia. She had an ileus which improved on its own. Her dose of Protonix was increased to twice daily. It took sometime to fine tune her pain medication dose due to issues with sedation. She has not had much of an appetite but did eat more on the day prior to discharge. Objective Vital signs: Temp Pulse Resp BP Pulse Ox 97.3 F L 76 18 121/54 93 L 11/13/17 07:23 11/13/17 09:27 11/13/17 07:23 11/13/17 07:23 11/13/17 08:00 no acute distress - *Routine HEENT Exam ENT: Present: mucous membranes moist - *Routine Respiratory Exam Present: CTA bilaterally - *Routine Cardiovascular Exam Present: RRR - *Routine Abdominal Exam Present: soft, normoactive bowel sounds, tenderness (minimal) - *Routine Extremities Exam Absent: cyanosis, clubbing, edema Comments: dressing over right hip wound Results Labs on day of discharge: Labs from last 24 hours 11/13/17 04:40 Stool Occult Blood Negative Preliminary micro results at discharge 11/08/17 08:37 Surgical Biopsy Culture - Preliminary Hip,Right NO GROWTH AFTER 4 DAYS Laboratory Results - last 72 hr 11/08/17 11/11/17 11/11/17 06:35 06:05 06:05 WBC 12.0 H D RBC 2.55 L Hgb 7.9 L* Hct 24.7 L MCV 96.9 MCH 31.1 MCHC 32.0 RDW 13.9 Plt Count 181 D MPV 8.7 Neut % (Auto) 87.8 H Lymph % (Auto) 5.9 L [place] % (Auto) 5.9 Eos % (Auto) 0.3 Baso % (Auto) 0.1 Neut # (Auto) 10.5 H Lymph # (Auto) 0.7 [place] # (Auto) 0.7 Eos # (Auto) 0.0 Baso # (Auto) 0.0 Total Counted 100 Neutrophils % (Manual) 92 H Lymphocytes % (Manual) 5 L Monocytes % (Manual) 3 Platelet Estimate Normal Hypochromasia 1+ PT 12.3 H INR 1.14 H Sodium Potassium Chloride Carbon Dioxide Anion Gap BUN Creatinine Estimated Creat Clear Estimated GFR Est GFR ( Amer) Glucose Magnesium Stool Occult Blood Blood Type Antibody Screen Crossmatch ([facility]) See Detail 11/11/17 11/11/17 11/12/17 06:05 10:33 06:22 WBC 10.6 RBC 3.57 L D Hgb 10.8 L Hct 33.7 L MCV 94.5 MCH 30.3 MCHC 32.0 RDW 15.2 Plt Count 220 MPV 8.6 Neut % (Auto) 84.9 H Lymph % (Auto) 6.8 L [place] % (Auto) 7.0 Eos % (Auto) 1.0 Baso % (Auto) 0.3 Neut # (Auto) 9.0 H Lymph # (Auto) 0.7 [place] # (Auto) 0.7 Eos # (Auto) 0.1 Baso # (Auto) 0.0 Total Counted Neutrophils % (Manual) Lymphocytes % (Manual) Monocytes % (Manual) Platelet Estimate Hypochromasia PT INR Sodium 135 L Potassium 3.8 Chloride 101 Carbon Dioxide 26 Anion Gap 11.8 BUN 26 H Creatinine 1.28 H D Estimated Creat Clear 23 Estimated GFR 39 L Est GFR ( Amer) 48 L D Glucose 100 Magnesium 1.5 Stool Occult Blood Blood Type A Positive Antibody Screen Negative Crossmatch ([facility]) See Detail 11/12/17 11/12/17 11/13/17 06:22 06:22 04:40 WBC RBC Hgb Hct MCV MCH MCHC RDW Plt Count MPV Neut % (Auto) Lymph % (Auto) [place] % (Auto) Eos % (Auto) Baso % (Auto) Neut # (Auto) Lymph # (Auto) [place] # (Auto) Eos # (Auto) Baso # (Auto) Total Counted Neutrophils % (Manual) Lymphocytes % (Manual) Monocytes % (Manual) Platelet Estimate Hypochromasia PT 11.6 INR 1.07 Sodium 134 L Potassium 3.5 Chloride 100 Carbon Dioxide 26 Anion Gap 11.5 BUN 21 H Creatinine 1.14 H Estimated Creat Clear 26 Estimated GFR 45 L Est GFR ( Amer) 55 L Glucose 99 Magnesium Stool Occult Blood Negative Blood Type Antibody Screen Crossmatch ([facility]) DS: Diagnosis - Discharge Diagnosis (1) Status post right hip replacement Status: Acute (2) Aortic valve stenosis Status: Acute (3) CAD (coronary artery disease) Status: Chronic (4) Cardiac pacemaker in situ Status: Chronic (5) Atrial fibrillation Status: Chronic (6) Cardiomyopathy Status: Chronic (7) HLD (hyperlipidemia) Status: Chronic (8) HTN (hypertension) Status: Chronic (9) Mitral valve regurgitation Status: Chronic (10) Leukocytosis Status: Acute (11) Anemia Status: Acute (12) Abdominal pain Status: Acute (13) Postoperative ileus Status: Resolved Discharge Plan - Patient Discharge Instructions ACTIVITY: Continue current activity DIET: continue same diet Additional Instructions: Patient needs to have a PT/INR, CBC and BMP on 11/16/17. She needs to continue Lovenox until her INR is 2.0 or greater. Right hip dressing change every 7 days. She needs to continue physical therapy. Patient Instructions: Hip Replacement, Ileus, DI for Ileus, DI for Hip Replacement, DI for Surgical Site Infection, Surgical Site Infection, Warfarin, Coumadin Vitamin K/ Diet, Coumadin Therapy Booklet - Follow up Plan Follow up with: Nuno Lopez MD [Staff Physician] - 10 days Disposition: [facility] Home Medications: Home Medications Medication Instructions Recorded Confirmed Type bisoprolol fumarate 5 mg tablet 2.5 mg PO BID 07/14/17 11/08/17 History celecoxib 200 mg capsule 200 mg PO DAILY 07/14/17 11/09/17 History cholecalciferol (vitamin D3) 1,000 1,000 unit PO DAILY 07/14/17 11/08/17 History unit capsule duloxetine 60 mg capsule,delayed 60 mg PO DAILY 07/14/17 11/09/17 History release furosemide 20 mg tablet 20 mg PO QODHS 07/14/17 11/08/17 History midodrine 5 mg tablet 5 mg PO TID 07/14/17 11/08/17 History multivitamin-ferrous 1 tab PO DAILY 07/14/17 11/09/17 History fumarate-folic acid 18 mg-400 mcg tablet potassium chloride ER 10 mEq 10 meq PO QODHS 07/14/17 11/08/17 History capsule,extended release warfarin 2 mg tablet 1 mg PO DAILY 07/14/17 11/09/17 History Digoxin 125 mcg PO DAILY 09/23/17 11/08/17 History diltiazem CD 180 mg 180 mg PO DAILY cap 11/02/17 11/08/17 History capsule,extended release 24 hr Levothyroxine Sodium [Synthroid 75 mcg PO DAILY 11/09/17 11/09/17 History 75mcg (0.075mg) tablet] Polyethylene Glycol 3350 [Miralax 17 gm PO DAILYP PRN 11/09/17 11/09/17 History 17gm Packet] Ropinirole HCl 0.5 mg PO HS 11/09/17 11/09/17 History Prescriptions/Medication Reconciliation: New Acetaminophen [Acetaminophen 325mg tab] 650 mg PO TID tablet Docusate Sodium [Docusate Sodium 100mg Cap] 100 mg PO BID capsule Enoxaparin Sodium [Lovenox 30mg/0.3mL syringe] 30 mg SQ DAILY syringe Nystatin [Nystatin Susp 500,000 Units/5mL Udc] 500,000 unit PO QID udc Oxycodone HCl [OxyIR 5mg tablet] 2.5 mg PO Q4HP PRN #90 tab PRN Reason: Severe Pain Continue bisoprolol fumarate 5 mg tablet 2.5 mg PO BID celecoxib 200 mg capsule 200 mg PO DAILY multivitamin-ferrous fumarate-folic acid 18 mg-400 mcg tablet 1 tab PO DAILY cholecalciferol (vitamin D3) 1,000 unit capsule 1,000 unit PO DAILY duloxetine 60 mg capsule,delayed release 60 mg PO DAILY furosemide 20 mg tablet 20 mg PO QODHS midodrine 5 mg tablet 5 mg PO TID potassium chloride ER 10 mEq capsule,extended release 10 meq PO QODHS warfarin 2 mg tablet 1 mg PO DAILY diltiazem CD 180 mg capsule,extended release 24 hr 180 mg PO DAILY cap Levothyroxine Sodium [Synthroid 75mcg (0.075mg) tablet] 75 mcg PO DAILY Digoxin 125 mcg PO DAILY Ropinirole HCl 0.5 mg PO HS Polyethylene Glycol 3350 [Miralax 17gm Packet] 17 gm PO DAILYP PRN PRN Reason: Constipation Changed Pantoprazole Sodium [Protonix 40mg tablet] 40 mg PO BID #60 ALPRAZolam [Xanax 0.5mg tab] 0.5 mg PO DAILY PRN #30 tab PRN Reason: Anxiety
== END 2017-11-13 12:29 | disposition home or self-care (01) ==
LOC: OR 06:03 → 2ND 12:00
PROVIDERS: ADMIT Family Medicine; ATTEND Orthopaedic Surgery